=== PATIENT | female | born 1980 | race Caucasian/White ===

== ENCOUNTER 2017-10-04 20:59 | Emergency (ER) | payer MEDICAID, OTHER ==
[~2017-10-04] VITALS: Ht 167.6 cm; Wt 90.3 kg
[~2017-10-04 20:59] MED LIST: ACET-704 PO; CYCL-331 PO; HYDR-2758 PO; IBUP800T19 PO
[2017-10-04] MEDS ORDERED: KETOROLAC 60 MG/2 ML VIAL. IM ONE (21:30)
[2017-10-04] MEDS ORDERED: DEXAMETHASONE SOD PHOS 10 MG/ML VIAL IV ONE (21:30)
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
[2017-10-04] MEDS ORDERED: PRED50TA PO (21:36)
[2017-10-04] MEDS ORDERED: IBUP800T19 PO (21:36)
[2017-10-04 22:00] VITALS: BP 113/44
== END 2017-10-04 22:00 | disposition home or self-care (01) ==
LOC: ER 20:59
DX: M54.42 Lumbago with sciatica, left side (principal); F12.10 Cannabis abuse, uncomplicated
CPT/HCPCS: 96372; 96374; 99284; J1100; J1885

== ENCOUNTER 2018-09-17 20:33 | Emergency (ER) | payer OTHER ==
[~2018-09-17] VITALS: Ht 167.6 cm; Wt 94.2 kg
[~2018-09-17 20:33] MED LIST changes: +HYDR-2155 PO; -HYDR-2758 PO; +PRED50TA PO
[2018-09-17] MEDS ORDERED: IV NORMAL SALINE 1,000ML 1,000 ML IV SCH (20:50)
[2018-09-17] MEDS ORDERED: ONDANSETRON PF 4 MG/2 ML VIAL. IV ONE (21:00)
[2018-09-17] MEDS ORDERED: CONTRAST GIVEN MC PRN (21:00)
[2018-09-17] MEDS ORDERED: IOHEXOL 300 MG/ML 75 ML VIAL. IV ONE (21:00)
[2018-09-17] MEDS ORDERED: xanax (21:24)
[2018-09-17] MEDS ORDERED: remeron (21:24)
[2018-09-17] MEDS ORDERED: paxil (21:24)
[2018-09-17 21:26] LABS: BASO % 1 % (0-3); EOS # 0.4 x10^3/uL (0.0-0.7); EOS % 9 % (0-3); HEMATOCRIT 39.3 % (36.0-47.0); HEMOGLOBIN 13.6 g/dL (12.0-15.5); LYMPH # 1.8 x10^3/uL (1.0-4.8); LYMPH % 36 % (24-48); MEAN CORPUSCULAR HEMOGLOBIN 29 pg (25-35); MEAN CORPUSCULAR HGB CONC 35 g/dL (31-37); MEAN CORPUSCULAR VOLUME 84 fL (79-100); MONO # 0.5 x10^3/uL (0.0-1.1); MONO % 10 % (0-9); NEUT # 2.2 x10^3uL (1.8-7.7); NEUT % 45 % (31-73); PLATELET COUNT 290 x10^3/uL (140-400); RED BLOOD COUNT 4.67 x10^6/uL (3.50-5.40); WHITE BLOOD COUNT 4.9 x10^3/uL (4.0-11.0)
[2018-09-17 21:27] LABS: BACTERIA,URINE 0 /HPF (0-FEW); BILIRUBIN,URINE NEG (NEG); CLARITY,URINE CLEAR; COLOR,URINE YELLOW; GLUCOSE,URINE NEG (NEG); NITRITE,URINE NEG (NEG); SQUAMOUS EPITHELIAL CELL,UR OCC /LPF; UROBILINOGEN,URINE 0.2 mg/dL (0.2 mg/dL); WBC,URINE 0 /HPF (0-4)
[2018-09-17 21:29] LABS: BARBITURATES NEG (NEG); BENZODIAZEPINES POS (NEG); CANNABINOIDS NEG (NEG); COCAINE NEG (NEG); METHADONE NEG (NEG); OPIATES POS (NEG); PHENCYCLIDINE NEG (NEG)
[2018-09-17 21:30] LABS: AMPHETAMINE/METHAMPHETAMINE NEG (NEG)
[2018-09-17 21:41] LABS: ALBUMIN 3.6 g/dL (3.4-5.0); ALBUMIN/GLOBULIN RATIO 0.9 (1.0-1.7); CALCIUM 8.6 mg/dL (8.5-10.1); CREATININE 0.7 mg/dL (0.6-1.0); GFR 93.2; POTASSIUM 3.9 mmol/L (3.5-5.1); TOTAL BILIRUBIN 0.2 mg/dL (0.2-1.0); TOTAL PROTEIN 7.7 g/dL (6.4-8.2)
[2018-09-17] MEDS ORDERED: KETOROLAC 30 MG/ML VIAL. IV ONE (21:45)
--- NOTE | 2018-09-17 22:15 | RAD ---
Examination: CT of the abdomen pelvis with IV contrast HISTORY: History of right-sided abdominal pain, nausea, bloody emesis COMPARISON: 08/13/2015 TECHNIQUE: Axial CT images of the abdomen pelvis were performed with IV contrast. Coronal and sagittal reformatted performed Exposure: One or more of the following individualized dose reduction techniques were utilized for this examination: 1. Automated exposure control 2. Adjustment of the mA and/or kV according to patient size 3. Use of iterative reconstruction technique FINDINGS: Minimal bibasilar lung atelectasis. No evidence of free air identified in the abdomen. The visualized liver, spleen, adrenals grossly appears unremarkable. The gallbladder is mildly distended. The stomach is mildly distended. The visualized pancreas grossly appears unremarkable. The small bowel is nondilated. Feces and gas noted in the colon. The urinary bladder is mildly distended. Punctate bilateral intrarenal collecting system calculi with the largest measuring 3 mm on the left. Mild prominent bilateral extrarenal pelvis. There is a 4.2 x 3.3 cm right ovarian teratoma identified containing fat and calcification within. No evidence of lytic bony destructive lesion. IMPRESSION: 1. Bilateral nephrolithiasis. 2. Right ovarian teratoma again identified. Electronically signed by: Salo Yao MD (09/17/2018 10:12 PM) [facility]
[2018-09-17 22:26] LABS: U PREG PATIENT NEGATIVE (NEG)
[2018-09-17] MEDS ORDERED: ONDA4TAB7 PO (22:48)
[2018-09-17] MEDS ORDERED: TRAM50TA PO (22:48)
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
[2018-09-17 23:00] VITALS: BP 121/80
== END 2018-09-17 23:10 | disposition home or self-care (01) ==
LOC: ER 20:33
DX: R10.10 Upper abdominal pain, unspecified (principal); R10.84 Generalized abdominal pain; R11.2 Nausea with vomiting, unspecified; N20.0 Calculus of kidney; D27.0 Benign neoplasm of right ovary; Z90.89 Acquired absence of other organs
CPT/HCPCS: 36415; 74177; 80053; 80307; 81001; 81025; 83690; 85025; 96361; 96374; 96375; 99284; J1885; J2405; J3010; Q9967; J7030

== ENCOUNTER 2018-09-18 23:37 | Emergency (ER) | payer OTHER ==
[~2018-09-18] VITALS: Ht 167.6 cm; Wt 94.7 kg
[~2018-09-18 23:37] MED LIST changes: +ONDA4TAB7 PO; +TRAM50TA PO; +paxil; +remeron; +xanax
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
[2018-09-19] MEDS ORDERED: IV NORMAL SALINE 1,000ML 1,000 ML IV SCH
[2018-09-19] MEDS ORDERED: ONDANSETRON PF 4 MG/2 ML VIAL. IV ONE (00:15)
[2018-09-19 00:51] LABS: BASO % 1 % (0-3); EOS # 0.4 x10^3/uL (0.0-0.7); EOS % 9 % (0-3); HEMATOCRIT 38.1 % (36.0-47.0); HEMOGLOBIN 12.7 g/dL (12.0-15.5); LYMPH % 42 % (24-48); MEAN CORPUSCULAR HEMOGLOBIN 28 pg (25-35); MEAN CORPUSCULAR HGB CONC 34 g/dL (31-37); MEAN CORPUSCULAR VOLUME 84 fL (79-100); MONO # 0.5 x10^3/uL (0.0-1.1); MONO % 10 % (0-9); NEUT # 1.9 x10^3uL (1.8-7.7); NEUT % 39 % (31-73); PLATELET COUNT 289 x10^3/uL (140-400); RED BLOOD COUNT 4.54 x10^6/uL (3.50-5.40); RED CELL DISTRIBUTION WIDTH 16.9 % (11.5-14.5); WHITE BLOOD COUNT 4.8 x10^3/uL (4.0-11.0)
[2018-09-19 00:58] LABS: ALBUMIN 3.4 g/dL (3.4-5.0); ALBUMIN/GLOBULIN RATIO 0.9 (1.0-1.7); CALCIUM 8.9 mg/dL (8.5-10.1); CREATININE 0.7 mg/dL (0.6-1.0); GFR 93.2; TOTAL BILIRUBIN 0.2 mg/dL (0.2-1.0); TOTAL PROTEIN 7.2 g/dL (6.4-8.2)
[2018-09-19] MEDS ORDERED: DICY20TA3 PO (01:03)
[2018-09-19] MEDS ORDERED: KETOROLAC 30 MG/ML VIAL. ONE (01:18)
[2018-09-19 01:21] VITALS: BP 129/97
[2018-09-19] MEDS ORDERED: KETOROLAC 30 MG/ML VIAL. IV ONE (01:30)
== END 2018-09-19 01:24 | disposition home or self-care (01) ==
LOC: ER 23:37
DX: R10.10 Upper abdominal pain, unspecified (principal); R11.2 Nausea with vomiting, unspecified; F32.9 Major depressive disorder, single episode, unspecified; Z87.442 Personal history of urinary calculi; Z90.89 Acquired absence of other organs; Z98.51 Tubal ligation status
CPT/HCPCS: 36415; 80053; 85025; 96361; 96374; 96375; 99283; J1885; J2405; J3010; J7030

== ENCOUNTER 2018-11-17 01:43 | Emergency (ER) | payer OTHER ==
[~2018-11-17] VITALS: Ht 167.6 cm; Wt 94.7 kg
[~2018-11-17 01:43] MED LIST changes: +DICY20TA3 PO
--- NOTE | 2018-11-17 02:10 | PHYS DOC ---
Past History Past Medical History: Anxiety, Depression, Kidney Stones, Pancreatitis Past Surgical History: Appendectomy, Tubal ligation, Other Alcohol Use: None Drug Use: None Adult General Chief Complaint Chief Complaint: ABDOMINAL PAIN [facility] HPI Patient is a 38-year-old female who presents with complaint of continued upper abdominal pain that is chronic in nature. Patient had undergone a cholecystectomy little over a month ago but continues to have pain in the area despite surgery. Patient states that she feels like the pain is the same as prior to the surgery. She states that she was prescribed hydrocodone for the pain but states that that has not been managing her pain. She also indicates that she had undergone upper endoscopy with no acute findings. She rates pain as severe and states that nothing is improving the pain.[] Review of Systems Review of Systems Constitutional: Denies fever or chills [] Respiratory: Denies cough or shortness of breath [] Cardiovascular: No additional information not addressed in HPI [] GI: Complains of upper abdominal pain without vomiting or diarrhea [] Integument: Denies rash or skin lesions [] Neurologic: Denies headache, focal weakness or sensory changes [] All other systems were reviewed and found to be within normal limits, except as documented in this note. Allergies Allergies Allergies Coded Allergies Type Severity Reaction Last Updated Verified No Known Drug Allergies 09/17/18 No Physical Exam Physical Exam Constitutional: Well developed, well nourished, no acute distress, non-toxic appearance. [] HENT: Normocephalic, atraumatic, bilateral external ears normal, oropharynx moist, no oral exudates, nose normal. [] Eyes: PERRLA, EOMI, conjunctiva normal, no discharge. [] Neck: Normal range of motion, no tenderness, supple, no stridor. [] Cardiovascular: Regular rate and rhythm[] Lungs & Thorax: Bilateral breath sounds clear to auscultation [] Abdomen: Bowel sounds normal, soft, with upper abdominal tenderness. [] Skin: Warm, dry, no erythema, no rash. [] Extremities: No tenderness, no cyanosis, no clubbing, ROM intact. [] Neurologic: Alert and oriented X 3, no focal deficits noted. [] EKG EKG [] Radiology/Procedures Radiology/Procedures [] Impressions: PROCEDURE: CT ABD PELV W/ IV CONTRST ONLY INDICATION: Abdomen pain COMPARISON: September 2018 TECHNIQUE: Axial CT images obtained through the abdomen and pelvis with contrast. One or more of the following individualized dose reduction techniques were utilized for this examination: 1. Automated exposure control; 2. Adjustment of the mA and/or kV according to patient size; 3. Use of iterative reconstruction technique. FINDINGS: Abdominal aorta is not aneurysmal. Small fat-containing right inguinal hernia. Postcholecystectomy changes without intrahepatic bile duct dilation. No peripancreatic fluid collection. Spleen is unremarkable. Bilateral nonobstructive renal stones. Urinary bladder is partially distended. Mild distention of the right extrarenal pelvis. Repeat demonstration of mixed attenuation mass in the right adnexa with fat soft tissue and fluid density component. Measures up to about 80 x 46 mm. Suture line is seen at the cecum which could be from post appendectomy changes. No dilated loops of bowel to suggest obstruction. Within the proximal jejunum there is a region with mild prominence of the wall. Degenerative changes of the spine. IMPRESSION: 1. Bilateral nonobstructive renal stones with distention of right extrarenal pelvis again seen. 2. Repeat demonstration of mixed attenuation mass in the right adnexa likely secondary to a teratoma. 3. There is a couple loops of jejunum with a mildly prominent wall with mild distention of the jejunum up to approximately 38 mm. This could be secondary to phase of peristalsis given that there is not a high-grade transition point seen however causes such as enteritis not excluded. Electronically signed by: Judith Velarde MD (11/17/2018 4:08 AM) [facility] DICTATED AND SIGNED BY: JUDITH VELARDE MD DATE: 11/17/18 0408 Course & Med Decision Making Course & Med Decision Making Pertinent Labs and Imaging studies reviewed. (See chart for details) [] Dragon Disclaimer Dragon Disclaimer This electronic medical record was generated, in whole or in part, using a voice recognition dictation system. Departure Departure: Impression: Primary Impression: Chronic abdominal pain Disposition: 01 HOME, SELF-CARE Condition: STABLE Referrals: CHIKA AYERS (PCP) Patient Instructions: Abdominal Pain, Chronic Pain, Chronic Pain Management DANIELE SLOAN Jr. DO Nov 17, 2018 02:10
[2018-11-17] MEDS ORDERED: IV NORMAL SALINE 1,000ML 1,000 ML IV SCH (02:15)
[2018-11-17] MEDS ORDERED: ONDANSETRON PF 4 MG/2 ML VIAL. IV ONE (02:15)
[2018-11-17 02:43] LABS: BASO % 1 % (0-3); EOS # 0.4 x10^3/uL (0.0-0.7); EOS % 7 % (0-3); HEMATOCRIT 36.4 % (36.0-47.0); HEMOGLOBIN 12.2 g/dL (12.0-15.5); LYMPH # 1.9 x10^3/uL (1.0-4.8); LYMPH % 35 % (24-48); MEAN CORPUSCULAR HEMOGLOBIN 28 pg (25-35); MEAN CORPUSCULAR HGB CONC 34 g/dL (31-37); MEAN CORPUSCULAR VOLUME 85 fL (79-100); MONO # 0.5 x10^3/uL (0.0-1.1); MONO % 9 % (0-9); NEUT # 2.6 x10^3uL (1.8-7.7); NEUT % 48 % (31-73); PLATELET COUNT 337 x10^3/uL (140-400); WHITE BLOOD COUNT 5.4 x10^3/uL (4.0-11.0)
[2018-11-17 02:59] LABS: ALBUMIN 3.4 g/dL (3.4-5.0); ALBUMIN/GLOBULIN RATIO 0.9 (1.0-1.7); CREATININE 0.5 mg/dL (0.6-1.0); GFR 137.4; TOTAL BILIRUBIN 0.2 mg/dL (0.2-1.0); TOTAL PROTEIN 7.4 g/dL (6.4-8.2)
[2018-11-17 03:04] LABS: BILIRUBIN,URINE NEG (NEG); CLARITY,URINE CLEAR; COLOR,URINE YELLOW; GLUCOSE,URINE NEG (NEG); NITRITE,URINE NEG (NEG); UROBILINOGEN,URINE 0.2 mg/dL (0.2 mg/dL)
[2018-11-17 03:05] LABS: BACTERIA,URINE FEW /HPF (0-FEW); RBC,URINE 0 /HPF (0-2); SQUAMOUS EPITHELIAL CELL,UR MANY /LPF; WBC,URINE OCC /HPF (0-4)
[2018-11-17 03:08] LABS: U PREG PATIENT NEGATIVE (NEG)
[2018-11-17 03:30] VITALS: BP 116/77
[2018-11-17] MEDS ORDERED: CONTRAST GIVEN MC PRN (03:30)
[2018-11-17] MEDS ORDERED: IOHEXOL 300 MG/ML 75 ML VIAL. IV ONE (03:30)
--- NOTE | 2018-11-17 04:11 | RAD ---
INDICATION: Abdomen pain COMPARISON: September 2018 TECHNIQUE: Axial CT images obtained through the abdomen and pelvis with contrast. One or more of the following individualized dose reduction techniques were utilized for this examination: 1. Automated exposure control; 2. Adjustment of the mA and/or kV according to patient size; 3. Use of iterative reconstruction technique. FINDINGS: Abdominal aorta is not aneurysmal. Small fat-containing right inguinal hernia. Postcholecystectomy changes without intrahepatic bile duct dilation. No peripancreatic fluid collection. Spleen is unremarkable. Bilateral nonobstructive renal stones. Urinary bladder is partially distended. Mild distention of the right extrarenal pelvis. Repeat demonstration of mixed attenuation mass in the right adnexa with fat soft tissue and fluid density component. Measures up to about 80 x 46 mm. Suture line is seen at the cecum which could be from post appendectomy changes. No dilated loops of bowel to suggest obstruction. Within the proximal jejunum there is a region with mild prominence of the wall. Degenerative changes of the spine. IMPRESSION: 1. Bilateral nonobstructive renal stones with distention of right extrarenal pelvis again seen. 2. Repeat demonstration of mixed attenuation mass in the right adnexa likely secondary to a teratoma. 3. There is a couple loops of jejunum with a mildly prominent wall with mild distention of the jejunum up to approximately 38 mm. This could be secondary to phase of peristalsis given that there is not a high-grade transition point seen however causes such as enteritis not excluded. Electronically signed by: Gregorio Velarde MD (11/17/2018 4:08 AM) [facility]
== END 2018-11-17 04:26 | disposition home or self-care (01) ==
LOC: ER 01:43
DX: G89.29 Other chronic pain (principal); R10.10 Upper abdominal pain, unspecified; N20.0 Calculus of kidney; K40.90 Unilateral inguinal hernia, without obstruction or gangrene, not specified as recurrent; F41.9 Anxiety disorder, unspecified; F32.9 Major depressive disorder, single episode, unspecified; Z87.442 Personal history of urinary calculi; Z90.89 Acquired absence of other organs; Z90.49 Acquired absence of other specified parts of digestive tract; Z98.51 Tubal ligation status
CPT/HCPCS: 36415; 74177; 80053; 81001; 81025; 83690; 85025; 87086; 96374; 96375; 96376; 99285; J2405; J3010; Q9967; J7030

== ENCOUNTER 2018-11-19 20:14 | Emergency (ER) | payer OTHER ==
[~2018-11-19] VITALS: Ht 167.6 cm; Wt 94.7 kg
--- NOTE | 2018-11-19 20:18 | ED.ADGEN ---
Past History Past Medical History: Anxiety, Constipation, Depression, GERD, Kidney Stones, Ovarian Cyst, Pancreatitis Past Surgical History: Appendectomy, Tubal ligation, Other Alcohol Use: None Drug Use: None Adult General Chief Complaint Chief Complaint "... I ve been having abdomen pain for months now.. lst I fell on glass window.. and some went into my stomach... they did surgery at [facility]... that was about 5 months ago.. then I had my gall bladder out about a month ago at [facility]...but I still get abd. pain... I have an apt. at my primary Dr. Cunningham.... tomorrow.. but they said go the Emergency.. if I was sill hurting... ".." I was seen here ... " HPI HPI Patient is a 38 year old female who presents with above hx and complaints of generalized abd. pain, nausea, vomiting . Patient denies bad food intake patient, denies any recent travel or specific ill contacts. Has had 2 surgeries in the last 5 months. One fro trauma hx perforation with glass fragments of a door at [facility]. Had another surgery for gallbladder removal 1 month ago. at [facility].. Denies any intake of bad food. Patient has been passing gas and stool. Patient denies any specific ill contacts or recent travel. Patient denies history of colitis or irritable bowel syndrome. Denies family history of colitis or irritable bowel. Patient denies any recent trauma to her abdomen. Patient has had previous previous other abd. surgeries of appendectomy and tubal ligation. Pt. has a teratoma or Rt ovarian mass, currently has follow up with [facility]on 11/22. Patient has history of anxiety, depression, kidney stones,GERD and pancreatitis. Patient denies history of endometriosis.. Patient denies dark or tarry stools. Pt. has had Nothing seems to make the pain better or worse. Patient normally follows with Dr. Ayers in [facility] primary care.CT on showed no acute surgical issues. Reviewed ER record at Dr. Fischer on 11/17/2018 in ED record on08/12/2018 for pancreatitis. Review of Systems Review of Systems Constitutional: Denies fever or chills [] Eyes: Denies change in visual acuity, redness, or eye pain [] HENT: Denies nasal congestion or sore throat [] Respiratory: Denies cough or shortness of breath [] Cardiovascular: No additional information not addressed in HPI [] GI: Has complaints of generalized abdominal pain, nausea, vomiting. Denies bloody stools or diarrhea [] : Denies dysuria or hematuria [] Musculoskeletal: Denies back pain or joint pain [] Integument: Denies rash or skin lesions [] Neurologic: Denies headache, focal weakness or sensory changes [] Endocrine: Denies polyuria or polydipsia [] All other systems were reviewed and found to be within normal limits, except as documented in this note. Family History Family History Noncontributory Current Medications Current Medications Current Medications Medications (Trade) Dose Ordered Sig/Carlton Start Time Stop Time Status Last Admin Dose Admin Famotidine (Pepcid Vial) 20 mg 1X ONCE 11/19/18 20:45 11/19/18 20:47 DC 11/19/18 20:59 20 MG Info (Do NOT chart on this entry -- for MONITORING) 1 each PRN DAILY PRN 11/19/18 22:30 11/20/18 02:18 DC Iohexol (Omnipaque 240 Mg/ml) 30 ml 1X ONCE 11/19/18 22:30 11/19/18 22:31 DC 11/19/18 23:14 30 ML Iohexol (Omnipaque 300 Mg/ml) 75 ml 1X ONCE 11/19/18 22:30 11/19/18 22:31 DC 11/19/18 23:15 75 ML Ketorolac Tromethamine (Toradol 30mg Vial) 30 mg 1X ONCE 11/19/18 20:45 11/19/18 20:47 DC 11/19/18 21:00 30 MG Lactated Ringer's 1,000 ml @ 1,000 mls/hr Q1H 11/19/18 20:41 11/19/18 21:40 DC 11/19/18 20:59 1,000 MLS/HR Magnesium Hydroxide (Milk Of Magnesia) 2,400 mg 1X ONCE 11/19/18 20:45 11/19/18 20:47 DC Morphine Sulfate (Morphine 10mg Syringe) 10 mg 1X ONCE 11/20/18 01:15 11/20/18 01:16 DC 11/20/18 01:14 10 MG Ondansetron HCl (Zofran) 8 mg 1X ONCE 11/19/18 23:00 11/19/18 23:01 DC 11/19/18 23:11 8 MG Allergies Allergies Allergies Coded Allergies Type Severity Reaction Last Updated Verified No Known Drug Allergies 11/19/18 No Physical Exam Physical Exam Constitutional: Moderately acute distress, non-toxic appearance. [] HENT: Normocephalic, atraumatic, bilateral external ears normal, oropharynx moist, no oral exudates, nose normal. [] Eyes: PERRLA, EOMI, conjunctiva normal, no discharge. [] Neck: Normal range of motion, no tenderness, supple, no stridor. [] Cardiovascular:Heart rate regular rhythm, no murmur [] Lungs & Thorax: Bilateral breath sounds clear to auscultation [] Abdomen: Bowel sounds normal, soft, generalized tenderness, mild distended, no masses, no pulsatile masses. [] Surgery scars in both cholecystectomy and midline above the umbilicus. Skin: Warm, dry, no erythema, no rash. [] Back: No tenderness, no CVA tenderness. [] Extremities: No tenderness, no cyanosis, no clubbing, ROM intact, no edema. [] No true psoas sign Neurologic: Alert and oriented X 3, normal motor function, normal sensory function, no focal deficits noted. [] Psychologic: Affect normal, judgement normal, mood normal. [] Current Patient Data Vital Signs Vital Signs Date Time Temp Pulse Resp B/P (MAP) Pulse Ox O2 Delivery O2 Flow Rate FiO2 11/19/18 23:15 91 20 136/90 (105) 96 Room Air 11/19/18 20:23 97.7 Lab Results Laboratory Tests Test 11/19/18 20:23 11/19/18 20:36 11/19/18 21:15 Urine Collection Type Unknown Urine Color Straw Urine Clarity Clear Urine pH 7.0 Urine Specific Omer <=1.005 Urine Protein Neg (NEG-TRACE) Urine Glucose (UA) Neg mg/dL (NEG) Urine Ketones (Stick) Neg mg/dL (NEG) Urine Blood Mod (NEG) Urine Nitrite Neg (NEG) Urine Bilirubin Neg (NEG) Urine Urobilinogen Dipstick 0.2 mg/dL (0.2 mg/dL) Urine Leukocyte Esterase Neg (NEG) Urine RBC 1-2 /HPF (0-2) Urine WBC Occ /HPF (0-4) Urine Squamous Epithelial Cells Occ /LPF Urine Bacteria 0 /HPF (0-FEW) Urine Opiates Screen Neg (NEG) Urine Methadone Screen Neg (NEG) Urine Barbiturates Neg (NEG) Urine Phencyclidine Screen Neg (NEG) Urine Amphetamine/Methamphetamine Neg (NEG) Urine Benzodiazepines Screen Pos (NEG) Urine Cocaine Screen Neg (NEG) Urine Cannabinoids Screen Neg (NEG) Urine Ethyl Alcohol Neg (NEG) POC Urine HCG, Qualitative hcg negative (Negative) White Blood Count 5.4 x10^3/uL (4.0-11.0) Red Blood Count 4.67 x10^6/uL (3.50-5.40) Hemoglobin 13.3 g/dL (12.0-15.5) Hematocrit 39.1 % (36.0-47.0) Mean Corpuscular Volume 84 fL (79-100) Mean Corpuscular Hemoglobin 29 pg (25-35) Mean Corpuscular Hemoglobin Concent 34 g/dL (31-37) Red Cell Distribution Width 17.6 % (11.5-14.5) H Platelet Count 336 x10^3/uL (140-400) Neutrophils (%) (Auto) 59 % (31-73) Lymphocytes (%) (Auto) 30 % (24-48) Monocytes (%) (Auto) 8 % (0-9) Eosinophils (%) (Auto) 2 % (0-3) Basophils (%) (Auto) 1 % (0-3) Neutrophils # (Auto) 3.2 x10^3uL (1.8-7.7) Lymphocytes # (Auto) 1.6 x10^3/uL (1.0-4.8) Monocytes # (Auto) 0.5 x10^3/uL (0.0-1.1) Eosinophils # (Auto) 0.1 x10^3/uL (0.0-0.7) Basophils # (Auto) 0.0 x10^3/uL (0.0-0.2) Prothrombin Time < 9.3 SEC (9.4-11.4) L Prothrombin Time INR 0.9 (0.9-1.1) PTT 24 SEC (23-33) Sodium Level 138 mmol/L (136-145) Potassium Level 3.8 mmol/L (3.5-5.1) Chloride Level 102 mmol/L (98-107) Carbon Dioxide Level 29 mmol/L (21-32) Anion Gap 7 (6-14) Blood Urea Nitrogen 14 mg/dL (7-20) Creatinine 0.6 mg/dL (0.6-1.0) Estimated GFR (Cockcroft-Gault) 111.3 Glucose Level 89 mg/dL (70-99) Calcium Level 9.6 mg/dL (8.5-10.1) Total Bilirubin 0.2 mg/dL (0.2-1.0) Direct Bilirubin 0.1 mg/dL (0.0-0.2) Aspartate Amino Transferase (AST) 38 U/L (15-37) H Alanine Aminotransferase (ALT) 163 U/L (14-59) H Alkaline Phosphatase 200 U/L (46-116) H Creatine Kinase 43 U/L (26-192) Troponin I Quantitative < 0.017 ng/mL (0-0.055) Total Protein 8.4 g/dL (6.4-8.2) H Albumin 3.8 g/dL (3.4-5.0) Amylase Level 48 U/L (25-115) Lipase 73 U/L (73-393) EKG EKG [] Radiology/Procedures Radiology/Procedures My interpretation of acute abdomen film shows no acute cardiopulmonary findings. No free air in the diaphragm. Does have clips from her previous gallbladder surgery. This does have stool and gas in colon. Nonspecific bowel gas pattern. No findings of obvious obstruction. Reviewed CT results of 11/17/2018, ED visit for abdomen pain. CT at that time showed no acute surgical findings. There were a couple loops of jejunum prominent with mild distention. Possible transition point versus enteritis. Did have bilateral nonobstructive renal stones[] [address] [address] IMAGING REPORT Signed PATIENT: KAREN BENNETT ACCOUNT: [id number] : 1980 LOCATION: ER AGE: 38 SEX: F EXAM STATUS: REG ER ORD. PHYSICIAN: JEAN-PIERRE YOUNG MD REASON: Omni 300 75cc: Abd pain, N/V. Hx:Samina, appy, lithotripsy PROCEDURE: CT ABD PELV W/ORAL&IV CONTRAST CT abdomen and pelvis with contrast: Reason for examination: Abdominal pain with nausea and vomiting. History of cholecystectomy and appendectomy. Comparison is made to previous study dated 11/17/2018. Helical images were obtained through the abdomen pelvis with intravenous administration of 75 cc Omnipaque 300. Oral contrast was also administered. Reconstruction was performed in sagittal and coronal planes. Exposure: One or more of the following individualized dose reduction techniques were utilized for this examination: 1. Automated exposure control 2. Adjustment of the mA and/or kV according to patient size 3. Use of iterative reconstruction technique. The lung bases are clear. The heart size is normal with no pericardial effusion. No abnormality seen at the liver, spleen, adrenal glands or pancreas. The abdominal aorta and inferior vena cava show no abnormalities. The kidneys show small nonobstructing calculi bilaterally. There is no hydronephrosis or obstructive uropathy evident. The appendix is surgically absent. There is no evidence of diverticulosis or diverticulitis. The small intestinal tract shows no abnormal dilatation or obstruction but there does appear to be some wall thickening in the proximal jejunum which may reflect enteritis. No abnormality seen stomach. No abnormality seen at the bladder, uterus or left ovary. In the right adnexa, there appears be complex mass containing fat and calcification. Teratoma cannot be excluded. This appears to measure approximately 7.4 x 4.4 x 5.7 cm in AP, transverse and craniocaudal dimensions respectively. No acute bony abnormalities are seen. IMPRESSION: Wall thickening in the proximal jejunum without dilatation. This could reflect enteritis. Continued presence of a 7.4 x 4.4 x 5.7 cm complex mass containing fat and calcification. Appearance would be consistent with a teratoma. Electronically signed by: Maribel Garcia MD (11/20/2018 12:28 AM) [facility] DICTATED AND SIGNED BY: MARIBEL GARCIA MD DATE: 11/20/18 0028 CC: JEAN-PIERRE YOUNG MD; CHIKA AYERS ~ Course & Med Decision Making Course & Med Decision Making Pertinent Labs and Imaging studies reviewed. (See chart for details) Pt. to remain on clear fluid diet only. NO SOLIDS OR MILK PRODUCTS. Must allow bowel rest. Clear fluid s as long as she has abd. pain. Keep scheduled follow up with OB /criminal investigative agent 11/22 Follow up with primary. Keep CT disc to show to primary, ob and surgery follow up. Return if any concerns. Continue the Pepcid and Zofran as needed for nausea and vomiting. Follow up pending labs. [] Final Impression Final Impression 1. Abdomen Pain[] 2. Elevated AST, ALT, Alk Phos 38/163/200 3. Enteritis- Proximal Jejunum - No dilation 4. Rt. Complex Ovarian Mass- Teratoma 7.4x 4.4 x 5.7 5. Hx. GERD- take Pepcid Dragon Disclaimer Dragon Disclaimer This electronic medical record was generated, in whole or in part, using a voice recognition dictation system. Discharge Summary Visit Information Final Diagnosis Problems Medical Problems: (1) Enteritis Status: Acute (2) Pain in the abdomen Status: Acute (3) Teratoma of right ovary Status: Acute Brief Hospital Course Allergies Allergies Coded Allergies Type Severity Reaction Last Updated Verified No Known Drug Allergies 11/19/18 No Vital Signs Vital Signs Date Time Temp Pulse Resp B/P (MAP) Pulse Ox O2 Delivery O2 Flow Rate FiO2 11/19/18 23:15 91 20 136/90 (105) 96 Room Air 11/19/18 20:23 97.7 Lab Results Laboratory Tests Test 11/19/18 20:23 11/19/18 20:36 11/19/18 21:15 Urine Collection Type Unknown Urine Color Straw Urine Clarity Clear Urine pH 7.0 Urine Specific Omer <=1.005 Urine Protein Neg (NEG-TRACE) Urine Glucose (UA) Neg mg/dL (NEG) Urine Ketones (Stick) Neg mg/dL (NEG) Urine Blood Mod (NEG) Urine Nitrite Neg (NEG) Urine Bilirubin Neg (NEG) Urine Urobilinogen Dipstick 0.2 mg/dL (0.2 mg/dL) Urine Leukocyte Esterase Neg (NEG) Urine RBC 1-2 /HPF (0-2) Urine WBC Occ /HPF (0-4) Urine Squamous Epithelial Cells Occ /LPF Urine Bacteria 0 /HPF (0-FEW) Urine Opiates Screen Neg (NEG) Urine Methadone Screen Neg (NEG) Urine Barbiturates Neg (NEG) Urine Phencyclidine Screen Neg (NEG) Urine Amphetamine/Methamphetamine Neg (NEG) Urine Benzodiazepines Screen Pos (NEG) Urine Cocaine Screen Neg (NEG) Urine Cannabinoids Screen Neg (NEG) Urine Ethyl Alcohol Neg (NEG) Bedside Urine HCG, Qualitative hcg negative (Negative) White Blood Count 5.4 x10^3/uL (4.0-11.0) Red Blood Count 4.67 x10^6/uL (3.50-5.40) Hemoglobin 13.3 g/dL (12.0-15.5) Hematocrit 39.1 % (36.0-47.0) Mean Corpuscular Volume 84 fL (79-100) Mean Corpuscular Hemoglobin 29 pg (25-35) Mean Corpuscular Hemoglobin Concent 34 g/dL (31-37) Red Cell Distribution Width 17.6 % (11.5-14.5) Platelet Count 336 x10^3/uL (140-400) Neutrophils (%) (Auto) 59 % (31-73) Lymphocytes (%) (Auto) 30 % (24-48) Monocytes (%) (Auto) 8 % (0-9) Eosinophils (%) (Auto) 2 % (0-3) Basophils (%) (Auto) 1 % (0-3) Neutrophils # (Auto) 3.2 x10^3uL (1.8-7.7) Lymphocytes # (Auto) 1.6 x10^3/uL (1.0-4.8) Monocytes # (Auto) 0.5 x10^3/uL (0.0-1.1) Eosinophils # (Auto) 0.1 x10^3/uL (0.0-0.7) Basophils # (Auto) 0.0 x10^3/uL (0.0-0.2) Prothrombin Time < 9.3 SEC (9.4-11.4) Prothromb Time International Ratio 0.9 (0.9-1.1) Activated Partial Thromboplast Time 24 SEC (23-33) Sodium Level 138 mmol/L (136-145) Potassium Level 3.8 mmol/L (3.5-5.1) Chloride Level 102 mmol/L (98-107) Carbon Dioxide Level 29 mmol/L (21-32) Anion Gap 7 (6-14) Blood Urea Nitrogen 14 mg/dL (7-20) Creatinine 0.6 mg/dL (0.6-1.0) Estimated GFR (Cockcroft-Gault) 111.3 Glucose Level 89 mg/dL (70-99) Calcium Level 9.6 mg/dL (8.5-10.1) Total Bilirubin 0.2 mg/dL (0.2-1.0) Direct Bilirubin 0.1 mg/dL (0.0-0.2) Aspartate Amino Transf (AST/SGOT) 38 U/L (15-37) Alanine Aminotransferase (ALT/SGPT) 163 U/L (14-59) Alkaline Phosphatase 200 U/L (46-116) Creatine Kinase 43 U/L (26-192) Troponin I Quantitative < 0.017 ng/mL (0-0.055) Total Protein 8.4 g/dL (6.4-8.2) Albumin 3.8 g/dL (3.4-5.0) Amylase Level 48 U/L (25-115) Lipase 73 U/L (73-393) Brief Hospital Course Ms. Bennett is a 38 old female who presented with generalized abd. pain. Possible Enteritis, and Rt. Ovarian mass Discharge Information Condition at Discharge: Improved, Stable Disposition/Orders: D/C to Home Dischare Medications Current Medications Magnesium Hydroxide (Milk Of Magnesia) 2,400 mg 1X ONCE PO Last administered on 11/19/18at 20:40; Admin Dose 2,400 MG; Start 11/19/18 at 20:30; Stop 11/19/18 at 20:31; Status DC Lactated Ringer's 1,000 ml @ 1,000 mls/hr Q1H IV Last administered on 11/19/18at 20:59; Admin Dose 1,000 MLS/HR; Start 11/19/18 at 20:41; Stop 11/19/18 at 21:40; Status DC Ondansetron HCl (Zofran) 8 mg 1X ONCE IV Last administered on 11/19/18at 20:59; Admin Dose 8 MG; Start 11/19/18 at 20:45; Stop 11/19/18 at 20:47; Status DC Famotidine (Pepcid Vial) 20 mg 1X ONCE IVP Last administered on 11/19/18at 20:59; Admin Dose 20 MG; Start 11/19/18 at 20:45; Stop 11/19/18 at 20:47; Status DC Ketorolac Tromethamine (Toradol 30mg Vial) 30 mg 1X ONCE IV Last administered on 11/19/18at 21:00; Admin Dose 30 MG; Start 11/19/18 at 20:45; Stop 11/19/18 at 20:47; Status DC Magnesium Hydroxide (Milk Of Magnesia) 2,400 mg 1X ONCE PO ; Start 11/19/18 at 20:45; Stop 11/19/18 at 20:47; Status DC Morphine Sulfate (Morphine 10mg Syringe) 10 mg 1X ONCE SQ Last administered on 11/19/18at 22:07; Admin Dose 10 MG; Start 11/19/18 at 22:00; Stop 11/19/18 at 22:01; Status DC Iohexol (Omnipaque 240 Mg/ml) 30 ml 1X ONCE PO Last administered on 11/19/18at 23:14; Admin Dose 30 ML; Start 11/19/18 at 22:30; Stop 11/19/18 at 22:31; Status DC Iohexol (Omnipaque 300 Mg/ml) 75 ml 1X ONCE IV Last administered on 11/19/18at 23:15; Admin Dose 75 ML; Start 11/19/18 at 22:30; Stop 11/19/18 at 22:31; Status DC Info (Do NOT chart on this entry -- for MONITORING) 1 each PRN DAILY PRN MC SEE COMMENTS; Start 11/19/18 at 22:30; Stop 11/20/18 at 02:18; Status DC Ondansetron HCl (Zofran) 8 mg 1X ONCE IV Last administered on 11/19/18at 23:11; Admin Dose 8 MG; Start 11/19/18 at 23:00; Stop 11/19/18 at 23:01; Status DC Morphine Sulfate (Morphine 10mg Syringe) 10 mg 1X ONCE SQ Last administered on 11/19/18at 23:11; Admin Dose 10 MG; Start 11/19/18 at 23:30; Stop 11/19/18 at 23:31; Status DC Morphine Sulfate (Morphine 10mg Syringe) 10 mg 1X ONCE SQ Last administered on 11/20/18at 01:14; Admin Dose 10 MG; Start 11/20/18 at 01:15; Stop 11/20/18 at 01:16; Status DC Active Scripts Active Pepcid (Famotidine) 20 Mg Tablet 20 Mg PO BID Zofran (Ondansetron Hcl) 8 Mg Tablet 8 Mg PO QIDPRN PRN Hydrocodone-Ibuprofen 7.5-200 (Hydrocodone/Ibuprofen) 1 Each Tablet 1 Tab PO PRN Q6HRS PRN Dicyclomine Hcl 20 Mg Tablet 1 Tab PO TID PRN Zofran (Ondansetron Hcl) 4 Mg Tablet 4 Mg PO Q6HRS PRN Tramadol Hcl (Tramadol HCl) 50 Mg Tablet 50 Mg PO PRN Q6HRS PRN Reported [remeron] [xanax] [paxil] Dragon Disclaimer This chart was dictated in whole or in part using Voice Recognition software in a busy, high-work load, and often noisy Emergency Department environment. It may contain unintended and wholly unrecognized errors or omissions. JEAN-PIERRE YOUNG MD Nov 19, 2018 20:18
[2018-11-19] MEDS ORDERED: MAGNESIUM HYDROXIDE 2,400 MG/30 ML ORAL.SUSP. PO ONE ×2 (20:30→20:45)
[2018-11-19] MEDS ORDERED: IV RINGERS SOLUTION,LACTATED 1,000 ML IV SCH (20:41)
[2018-11-19] MEDS ORDERED: KETOROLAC 30 MG/ML VIAL. IV ONE (20:45)
[2018-11-19] MEDS ORDERED: FAMOTIDINE 20 MG/2 ML VIAL IVP ONE (20:45)
[2018-11-19] MEDS ORDERED: ONDANSETRON PF 4 MG/2 ML VIAL. IV ONE ×2 (20:45→23:00)
[2018-11-19 21:10] LABS: BARBITURATES NEG (NEG); BENZODIAZEPINES POS (NEG); CANNABINOIDS NEG (NEG); COCAINE NEG (NEG); METHADONE NEG (NEG); OPIATES NEG (NEG); PHENCYCLIDINE NEG (NEG)
[2018-11-19 21:12] LABS: BACTERIA,URINE 0 /HPF (0-FEW); BILIRUBIN,URINE NEG (NEG); CLARITY,URINE CLEAR; COLOR,URINE STRAW; GLUCOSE,URINE NEG (NEG); NITRITE,URINE NEG (NEG); SQUAMOUS EPITHELIAL CELL,UR OCC /LPF; UROBILINOGEN,URINE 0.2 mg/dL (0.2 mg/dL); WBC,URINE OCC /HPF (0-4)
[2018-11-19 21:20] LABS: AMPHETAMINE/METHAMPHETAMINE NEG (NEG)
--- NOTE | 2018-11-19 21:29 | RAD ---
EXAM: Abdomen acute complete. HISTORY: Pain. COMPARISON: CT dated 11/17/2018. FINDINGS: A frontal view the chest and frontal upright and supine views of the abdomen are obtained. There is no infiltrate, pleural effusion or pneumothorax. The heart is normal in size. There is moderate gas and stool within the colon. No abnormally dilated loop of bowel is seen. There is no free air. There are cholecystectomy clips. IMPRESSION: 1. Nonobstructive bowel gas pattern. 2. No acute pulmonary finding. Electronically signed by: Karin Phan MD (11/19/2018 9:26 PM) [facility]
[2018-11-19 21:31] LABS: BASO % 1 % (0-3); EOS # 0.1 x10^3/uL (0.0-0.7); EOS % 2 % (0-3); HEMATOCRIT 39.1 % (36.0-47.0); HEMOGLOBIN 13.3 g/dL (12.0-15.5); LYMPH # 1.6 x10^3/uL (1.0-4.8); LYMPH % 30 % (24-48); MEAN CORPUSCULAR HEMOGLOBIN 29 pg (25-35); MEAN CORPUSCULAR HGB CONC 34 g/dL (31-37); MEAN CORPUSCULAR VOLUME 84 fL (79-100); MONO # 0.5 x10^3/uL (0.0-1.1); MONO % 8 % (0-9); NEUT # 3.2 x10^3uL (1.8-7.7); NEUT % 59 % (31-73); PLATELET COUNT 336 x10^3/uL (140-400); RED BLOOD COUNT 4.67 x10^6/uL (3.50-5.40); RED CELL DISTRIBUTION WIDTH 17.6 % (11.5-14.5); WHITE BLOOD COUNT 5.4 x10^3/uL (4.0-11.0)
[2018-11-19 21:47] LABS: ALBUMIN 3.8 g/dL (3.4-5.0); CALCIUM 9.6 mg/dL (8.5-10.1); CREATININE 0.6 mg/dL (0.6-1.0); DIRECT BILIRUBIN 0.1 mg/dL (0.0-0.2); GFR 111.3; POTASSIUM 3.8 mmol/L (3.5-5.1); TOTAL BILIRUBIN 0.2 mg/dL (0.2-1.0); TOTAL PROTEIN 8.4 g/dL (6.4-8.2)
[2018-11-19] MEDS ORDERED: MORPHINE SULFATE 10 MG/ML SYRINGE. SQ ONE ×2 (22:00→23:30)
[2018-11-19] MEDS ORDERED: CONTRAST GIVEN MC PRN (22:30)
[2018-11-19] MEDS ORDERED: IOHEXOL 240 MG/ML 50ML VIAL. PO ONE (22:30)
[2018-11-19] MEDS ORDERED: IOHEXOL 300 MG/ML 75 ML VIAL. IV ONE (22:30)
[2018-11-19 23:15] VITALS: BP 136/90
--- NOTE | 2018-11-20 00:31 | RAD ---
CT abdomen and pelvis with contrast: Reason for examination: Abdominal pain with nausea and vomiting. History of cholecystectomy and appendectomy. Comparison is made to previous study dated 11/17/2018. Helical images were obtained through the abdomen pelvis with intravenous administration of 75 cc Omnipaque 300. Oral contrast was also administered. Reconstruction was performed in sagittal and coronal planes. Exposure: One or more of the following individualized dose reduction techniques were utilized for this examination: 1. Automated exposure control 2. Adjustment of the mA and/or kV according to patient size 3. Use of iterative reconstruction technique. The lung bases are clear. The heart size is normal with no pericardial effusion. No abnormality seen at the liver, spleen, adrenal glands or pancreas. The abdominal aorta and inferior vena cava show no abnormalities. The kidneys show small nonobstructing calculi bilaterally. There is no hydronephrosis or obstructive uropathy evident. The appendix is surgically absent. There is no evidence of diverticulosis or diverticulitis. The small intestinal tract shows no abnormal dilatation or obstruction but there does appear to be some wall thickening in the proximal jejunum which may reflect enteritis. No abnormality seen stomach. No abnormality seen at the bladder, uterus or left ovary. In the right adnexa, there appears be complex mass containing fat and calcification. Teratoma cannot be excluded. This appears to measure approximately 7.4 x 4.4 x 5.7 cm in AP, transverse and craniocaudal dimensions respectively. No acute bony abnormalities are seen. IMPRESSION: Wall thickening in the proximal jejunum without dilatation. This could reflect enteritis. Continued presence of a 7.4 x 4.4 x 5.7 cm complex mass containing fat and calcification. Appearance would be consistent with a teratoma. Electronically signed by: Lazara Thakkar MD (11/20/2018 12:28 AM) [facility]
[2018-11-20] MEDS ORDERED: ONDA8TAB9 PO (00:56)
[2018-11-20] MEDS ORDERED: FAMO-63 PO (00:56)
[2018-11-20] MEDS ORDERED: HYDR-1179 PO (00:56)
[2018-11-20] MEDS ORDERED: MORPHINE SULFATE 10 MG/ML SYRINGE. SQ ONE (01:15)
== END 2018-11-20 01:30 | disposition home or self-care (01) ==
LOC: ER 20:14
DX: K52.89 Other specified noninfective gastroenteritis and colitis (principal); D27.0 Benign neoplasm of right ovary; K21.9 Gastro-esophageal reflux disease without esophagitis; R70.0 Elevated erythrocyte sedimentation rate; R74.0 Nonspecific elevation of levels of transaminase and lactic acid dehydrogenase [LDH]; R74.8 Abnormal levels of other serum enzymes; R11.2 Nausea with vomiting, unspecified; F41.9 Anxiety disorder, unspecified; F32.9 Major depressive disorder, single episode, unspecified; Z87.442 Personal history of urinary calculi; Z90.49 Acquired absence of other specified parts of digestive tract; Z98.51 Tubal ligation status
CPT/HCPCS: 36415; 74022; 74177; 80048; 80076; 80307; 81001; 81025; 82150; 82550; 83690; 84484; 85025; 85610; 85730; 86705; 86709; 86803; 87340; 96361; 96372; 96374; 96375; 96376; 99285; J1885; J2270; J2405; J3490; J7120; Q9966; Q9967

== ENCOUNTER 2018-12-11 14:11 | Emergency (ER) | payer OTHER ==
[~2018-12-11] VITALS: Ht 167.6 cm; Wt 103.9 kg
[~2018-12-11 14:11] MED LIST changes: +FAMO-63 PO; +HYDR-1179 PO; +ONDA8TAB9 PO
[2018-12-11 15:13] LABS: BASO % 1 % (0-3); EOS # 0.3 x10^3/uL (0.0-0.7); EOS % 5 % (0-3); HEMATOCRIT 36.2 % (36.0-47.0); HEMOGLOBIN 12.5 g/dL (12.0-15.5); LYMPH # 1.7 x10^3/uL (1.0-4.8); LYMPH % 32 % (24-48); MEAN CORPUSCULAR HEMOGLOBIN 29 pg (25-35); MEAN CORPUSCULAR HGB CONC 34 g/dL (31-37); MEAN CORPUSCULAR VOLUME 83 fL (79-100); MONO # 0.4 x10^3/uL (0.0-1.1); MONO % 8 % (0-9); NEUT # 2.8 x10^3uL (1.8-7.7); NEUT % 54 % (31-73); PLATELET COUNT 291 x10^3/uL (140-400); RED BLOOD COUNT 4.34 x10^6/uL (3.50-5.40); RED CELL DISTRIBUTION WIDTH 18.3 % (11.5-14.5); WHITE BLOOD COUNT 5.3 x10^3/uL (4.0-11.0)
[2018-12-11] MEDS ORDERED: oxyCODONE/APAP 5/325 1 TAB TABLET PO ONE (15:15)
[2018-12-11] MEDS ORDERED: ONDANSETRON PF 4 MG/2 ML VIAL. IV ONE (15:15)
[2018-12-11 15:21] LABS: CLARITY,URINE HAZY; COLOR,URINE YELLOW
[2018-12-11 15:22] LABS: BACTERIA,URINE FEW /HPF (0-FEW); BILIRUBIN,URINE NEG (NEG); GLUCOSE,URINE NEG (NEG); NITRITE,URINE NEG (NEG); SQUAMOUS EPITHELIAL CELL,UR OCC /LPF; U PREG PATIENT NEGATIVE (NEG); UROBILINOGEN,URINE 0.2 mg/dL (0.2 mg/dL); WBC,URINE OCC /HPF (0-4)
[2018-12-11 15:25] LABS: ALBUMIN 3.4 g/dL (3.4-5.0); ALBUMIN/GLOBULIN RATIO 0.8 (1.0-1.7); GFR 93.2; POTASSIUM 3.7 mmol/L (3.5-5.1); TOTAL BILIRUBIN 0.2 mg/dL (0.2-1.0); TOTAL PROTEIN 7.5 g/dL (6.4-8.2)
[2018-12-11] MEDS ORDERED: KETOROLAC 15 MG/ML VIAL. IV ONE (15:30)
[2018-12-11] MEDS ORDERED: METOCLOPRAMIDE HCL 10 MG/2 ML VIAL. IV ONE (15:45)
[2018-12-11 15:50] LABS: CALCIUM 8.7 mg/dL (8.5-10.1); CREATININE 0.7 mg/dL (0.6-1.0)
[2018-12-11 16:20] VITALS: BP 94/47
[2018-12-11] MEDS ORDERED: HYDR-3165 PO (16:33)
[2018-12-11] MEDS ORDERED: GABA-585 PO (16:33)
--- NOTE | 2018-12-11 16:52 | PHYS DOC ---
Past History Past Medical History: Other Past Surgical History: Cholecystectomy, Other Alcohol Use: None Drug Use: None Adult General Chief Complaint Chief Complaint: ABDOMINAL PAIN HPI HPI Patient is a 38 waspresentingwithchiefcomplaintof abdominal pain onset months ago same as when she was here 11/19 she has been takikng vicoprofen pain increasing she couldnt take it anymroe so came here 11/19 ct scan i reviewed, she says the pain is same today epig ruq a/w nausesa, sharp and burning no lower quad pain has f/u obgyn this tuesday for the ovarian lesion seen 11/19. overall no fever Review of Systems Review of Systems Constitutional: Denies fever or chills [] Eyes: Denies change in visual acuity, redness, or eye pain [] HENT: Denies nasal congestion or sore throat [] Respiratory: Denies cough or shortness of breath [] C Musculoskeletal: Endocrine: Denies polyuria or polydipsia [] All other systems were reviewed and found to be within normal limits, except as documented in this note. Current Medications Current Medications Current Medications Medications (Trade) Dose Ordered Sig/[place] Start Time Stop Time Status Last Admin Dose Admin Fentanyl Citrate (Fentanyl 2ml Vial) 50 mcg 1X ONCE 12/11/18 15:45 12/11/18 15:52 DC 12/11/18 15:59 50 MCG Ketorolac Tromethamine (Toradol 15mg Vial) 30 mg 1X ONCE 12/11/18 15:30 12/11/18 15:31 DC 12/11/18 15:26 30 MG Metoclopramide HCl (Reglan Vial) 10 mg 1X ONCE 12/11/18 15:45 12/11/18 15:52 DC 12/11/18 15:56 10 MG Ondansetron HCl (Zofran) 4 mg 1X ONCE 12/11/18 15:15 12/11/18 15:16 DC 12/11/18 15:23 4 MG Oxycodone/ Acetaminophen (Percocet 5/325) 2 tab 1X ONCE 12/11/18 15:15 12/11/18 15:16 DC 12/11/18 15:29 2 TAB Allergies Allergies Allergies Coded Allergies Type Severity Reaction Last Updated Verified No Known Drug Allergies 11/19/18 No Physical Exam Physical Exam Constitutional: Well developed, well nourished, no acute distress, non-toxic appearance. [] HENT: Normocephalic, atraumatic, bilateral external ears normal, oropharynx moist, no oral exudates, nose normal. [] Eyes: PERRLA, EOMI, conjunctiva normal, no discharge. [] Neck: Normal range of motion, no tenderness, supple, no stridor. [] Cardiovascular:Heart rate regular rhythm, no murmur [] Lungs & Thorax: Bilateral breath sounds clear to auscultation [] Abdomen: Bowel sounds normal, soft, ep;igastric and ruq (most ttp at site of surgical incision in epigastric where she was stabeed with glass six months ago) tenderness, no masses, no pulsatile masses. [] Skin: Warm, dry, no erythema, no rash. [] Back: No tenderness, no CVA tenderness. [] Extremities: No tenderness, no cyanosis, no clubbing, ROM intact, no edema. [] Neurologic: Alert and oriented X 3, normal motor function, normal sensory function, no focal deficits noted. [] Psychologic: Affect normal, judgement normal, mood normal. [] Current Patient Data Vital Signs Vital Signs Date Time Temp Pulse Resp B/P (MAP) Pulse Ox O2 Delivery O2 Flow Rate FiO2 12/11/18 16:20 81 20 94/47 (63) 94 Room Air 12/11/18 14:25 98.3 Lab Results Laboratory Tests Test 12/11/18 14:29 12/11/18 14:45 Urine Collection Type Unknown Urine Color Yellow Urine Clarity Hazy Urine pH 6.0 Urine Specific [place] >=1.030 Urine Protein 30 mg/dl (NEG-TRACE) Urine Glucose (UA) Neg mg/dL (NEG) Urine Ketones (Stick) Neg mg/dL (NEG) Urine Blood Large (NEG) Urine Nitrite Neg (NEG) Urine Bilirubin Neg (NEG) Urine Urobilinogen Dipstick 0.2 mg/dL (0.2 mg/dL) Urine Leukocyte Esterase Neg (NEG) Urine RBC 11-20 /HPF (0-2) Urine WBC Occ /HPF (0-4) Urine Squamous Epithelial Cells Occ /LPF Urine Bacteria Few /HPF (0-FEW) Urine Test Negative (NEG) White Blood Count 5.3 x10^3/uL (4.0-11.0) Red Blood Count 4.34 x10^6/uL (3.50-5.40) Hemoglobin 12.5 g/dL (12.0-15.5) Hematocrit 36.2 % (36.0-47.0) Mean Corpuscular Volume 83 fL (79-100) Mean Corpuscular Hemoglobin 29 pg (25-35) Mean Corpuscular Hemoglobin Concent 34 g/dL (31-37) Red Cell Distribution Width 18.3 % (11.5-14.5) H Platelet Count 291 x10^3/uL (140-400) Neutrophils (%) (Auto) 54 % (31-73) Lymphocytes (%) (Auto) 32 % (24-48) Monocytes (%) (Auto) 8 % (0-9) Eosinophils (%) (Auto) 5 % (0-3) H Basophils (%) (Auto) 1 % (0-3) Neutrophils # (Auto) 2.8 x10^3uL (1.8-7.7) Lymphocytes # (Auto) 1.7 x10^3/uL (1.0-4.8) Monocytes # (Auto) 0.4 x10^3/uL (0.0-1.1) Eosinophils # (Auto) 0.3 x10^3/uL (0.0-0.7) Basophils # (Auto) 0.0 x10^3/uL (0.0-0.2) Sodium Level 138 mmol/L (136-145) Potassium Level 3.7 mmol/L (3.5-5.1) Chloride Level 105 mmol/L (98-107) Carbon Dioxide Level 24 mmol/L (21-32) Anion Gap 9 (6-14) Blood Urea Nitrogen 12 mg/dL (7-20) Creatinine 0.7 mg/dL (0.6-1.0) Estimated GFR (Cockcroft-Gault) 93.2 BUN/Creatinine Ratio 17 (6-20) Glucose Level 109 mg/dL (70-99) H Calcium Level 8.7 mg/dL (8.5-10.1) Total Bilirubin 0.2 mg/dL (0.2-1.0) Aspartate Amino Transferase (AST) 121 U/L (15-37) H Alanine Aminotransferase (ALT) 144 U/L (14-59) H Alkaline Phosphatase 204 U/L (46-116) H Total Protein 7.5 g/dL (6.4-8.2) Albumin 3.4 g/dL (3.4-5.0) Albumin/Globulin Ratio 0.8 (1.0-1.7) L Lipase 227 U/L (73-393) EKG EKG [] Radiology/Procedures Radiology/Procedures [] Course & Med Decision Making Course & Med Decision Making Pertinent Labs and Imaging studies reviewed. (See chart for details) []38 yo f with chronic abdominal pain. Recent CT scan earlier this month with the identical type of pain I reviewed it there is no acute pathology. Her symptomatology and exam is very consistent with her previous emergency room visits she also had a CT scan on November 17 I think that doing another CT scan tonight would not be the right decision. LFTs are overall stable. pt felt better after fentanyl. did vomit after dose of norco. i wonder if she is having some neuropathic type pain from her surgery six months ago (she has been h aving pain for about four months). try gabapentin short course norco , advised this is only temporary get primary, gave phone number for pain mgmt as well Dragon Disclaimer Dragon Disclaimer This electronic medical record was generated, in whole or in part, using a voice recognition dictation system. Departure Departure: Impression: Primary Impression: Abdominal pain Disposition: HOME, SELF-CARE Condition: STABLE Patient Instructions: Abdominal Pain (Nonspecific) Scripts Gabapentin (GABAPENTIN ) 100 Mg Capsule 100 MG PO TID for NEUROGENIC PAIN, #30 CAP Prov: MARIA DE JESUS CLARKE MD 12/11/18 Hydrocodone Bit/Acetaminophen (NORCO 5-325 TABLET) 1 Each Tablet 1 TAB PO BID PRN for PAIN, #15 TAB Prov: MARIA DE JESUS CLARKE MD 12/11/18 MARIA DE JESUS CLARKE MD Dec 11, 2018 16:52
[2018-12-12] MEDS ORDERED: HYOS0.1264 PO (23:56)
[2018-12-12] MEDS ORDERED: OXAP600T2 PO (23:56)
[2018-12-12] MEDS ORDERED: METO10TA81 PO (23:56)
== END 2018-12-11 16:55 | disposition home or self-care (01) ==
LOC: ER 14:11
DX: R10.13 Epigastric pain (principal); Z90.49 Acquired absence of other specified parts of digestive tract
CPT/HCPCS: 36415; 80053; 81001; 81025; 83690; 85025; 96374; 96375; 99284; J1885; J2405; J2765; J3010

== ENCOUNTER 2018-12-12 21:37 | Emergency (ER) | payer OTHER ==
[~2018-12-12] VITALS: Ht 167.6 cm; Wt 94.7 kg
[~2018-12-12 21:37] MED LIST changes: +GABA-585 PO; +HYDR-3165 PO
--- NOTE | 2018-12-12 22:29 | PHYS DOC ---
Past History Past Medical History: Kidney Stones, Pancreatitis Past Surgical History: Appendectomy, Cholecystectomy, Tubal ligation, Other Additional Past Surgical Histo: knee Smoking: Cigarettes Alcohol Use: None Drug Use: None Adult General Chief Complaint Chief Complaint: ABDOMINAL PAIN HPI HPI Patient is a 38-year-old female presents with right-sided abdominal pain, similar to previous pancreatitis. This has been going on for the past day or 2. She was seen in the emergency department yesterday. Had some nausea but no vomiting at that time. She was discharged on outpatient pain medicines. Since that time she has developed nausea and vomiting and is unable to tolerate the pain medicines. Pain medicines were only providing minimal relief. No known history of an 8 cm teratoma on the right and is pending an [employer] STOCK[employer]EE[employer] appointment later this week. Her other surgical history is significant for cholecystectomy and appendectomy and tubal ligation. She is currently on her menstrual cycle. Reports that the pain is severe and crampy in nature.[] Review of Systems Review of Systems Constitutional: Denies fever or chills [] Eyes: Denies change in visual acuity, redness, or eye pain [] HENT: Denies nasal congestion or sore throat [] Respiratory: Denies cough or shortness of breath [] Cardiovascular: No chest pain or palpitations[] GI: See history of present illness[] : Denies dysuria or hematuria [] Musculoskeletal: Denies back pain or joint pain [] Integument: Denies rash or skin lesions [] Neurologic: Denies headache, focal weakness or sensory changes [] Endocrine: Denies polyuria or polydipsia [] All other systems were reviewed and found to be within normal limits, except as documented in this note. Allergies Allergies Allergies Coded Allergies Type Severity Reaction Last Updated Verified No Known Drug Allergies 11/19/18 No Physical Exam Physical Exam Constitutional: Well developed, well nourished, mild to moderate discomfort, non-toxic appearance. [] HENT: Normocephalic, atraumatic, bilateral external ears normal, oropharynx m oist, no oral exudates, nose normal. [] Eyes: PERRLA, EOMI, conjunctiva normal, no discharge. [] Neck: Normal range of motion, no tenderness, supple, no stridor. [] Cardiovascular:Heart rate is tachycardic in the low 100s with a regular rhythm, no murmur [] Lungs & Thorax: Bilateral breath sounds clear to auscultation [] Abdomen: Bowel sounds normal, soft, right-sided abdominal tenderness, no rebound, no guarding, no rigidity, able to sit up and lay back with any difficulty, no masses, no pulsatile masses. [] Skin: Warm, dry, no erythema, no rash. [] Back: No tenderness, no CVA tenderness. [] Extremities: No tenderness, no cyanosis, no clubbing, ROM intact, no edema. [] Neurologic: Alert and oriented X 3, normal motor function, normal sensory function, no focal deficits noted. [] Psychologic: Affect normal, judgement normal, mood normal. [] Current Patient Data Vital Signs Vital Signs Date Time Temp Pulse Resp B/P (MAP) Pulse Ox O2 Delivery O2 Flow Rate FiO2 12/12/18 21:54 98.6 97 22 96 Room Air EKG EKG [] Radiology/Procedures Radiology/Procedures PROCEDURE: CT ABD PELV W/ IV CONTRST ONLY CT scan of the abdomen and pelvis with contrast 12/12/2018 CLINICAL HISTORY: Right-sided abdominal pain. TECHNIQUE: After the intravenous administration 75 cc of Omnipaque 350, contiguous, 5 mm axial sections were obtained through the abdomen and pelvis. One or more of the following individualized dose reduction techniques were utilized for this study: 1. Automated exposure control. 2. Adjustment of the mA and/or kV according to patient size. 3. Use of iterative reconstruction technique. FINDINGS: Comparison study is dated 11/19/2018. Images through the lung bases demonstrate minimal dependent subsegmental atelectasis bilaterally. The liver parenchyma has a decreased attenuation consistent with fatty infiltration. The spleen, pancreas, antigen glands are within normal limits. Nonobstructing renal calculi are seen which measure 2 to 3 mm in size. The abdominal aorta tapers normally. Surgical clips are seen within the gallbladder fossa consistent with a cholecystectomy. No free fluid or free air is seen within the abdomen. There is no evidence of bowel obstruction. Air and stool is seen throughout the colon. The patient is post appendectomy. Images through the pelvis demonstrate the urinary bladder to be contracted. A 7.6 cm well-defined oval-shaped adnexal mass which contains fat and calcifications is seen consistent with a dermoid/teratoma, unchanged. No free fluid is noted. The osseous structures are unchanged. IMPRESSION: No acute abnormality is seen.[] Course & Med Decision Making Course & Med Decision Making Pertinent Labs and Imaging studies reviewed. (See chart for details) ED course: Patient arrived, was placed in bed, and tolerated exam well. She was transported to and from radiology with any complications. After the return of the laboratory and imaging studies, these were discussed with the patient who voiced understanding. All questions were answered. 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 Medical decision making: There is no evidence of an acute pancreatitis by either laboratory or imaging findings. No evidence of an obstruction or perforation. No evidence of oral intake intolerance. Patient has had previous appendectomy and cholecystectomy. No evidence of pyelonephritis, nor ectopic . Review of K tracks shows that the patient has since February 2018, 20 prescrip tions for narcotics and benzodiazepines that appear distributed among 14 providers. This makes me reluctant to prescribe additional narcotic pain medicine at this time.[] Dragon Disclaimer Dragon Disclaimer This electronic medical record was generated, in whole or in part, using a voice recognition dictation system. Departure Departure: Impression: Primary Impression: Abdominal pain Disposition: 01 HOME, SELF-CARE Condition: IMPROVED Referrals: PCP,BERONICA (PCP) Patient Instructions: Abdominal Pain, Nausea and Vomiting Additional Instructions: Follow-up with your regular doctor in 2 days. If you do not have a regular doctor list of local clinics will be provided for you. Return to the ER if unable to tolerate liquids or any other concerns. Drink plenty of fluids, frequent small sips. No fatty foods, no milk, and no pepper for the next 48 hours. For the next 48 hours eat a diet rich in carbohydrates with foods such as bananas, rice, applesauce, and toast. Scripts Oxaprozin (OXAPROZIN) 600 Mg Tablet 600 MG PO BID for pain, #20 TAB Prov: NATASHA MURILLO DO 12/12/18 Hyoscyamine Sulfate (LEVSIN) 0.125 Mg Tablet 0.125 MG PO QID for abdominal pain/cramping, #30 TAB Prov: NATASHA MURILLO DO 12/12/18 Metoclopramide Hcl (REGLAN) 10 Mg Tablet 10 MG PO QID for nausea and vomiting, #30 TAB Prov: NATASHA MURILLO DO 12/12/18 Problem Qualifiers Primary Impression: Abdominal pain Abdominal location: unspecified location Qualified Codes: R10.9 - Unspecified abdominal pain NATASHA MURILLO DO Dec 12, 2018 22:28
[2018-12-12] MEDS: MORPHINE SULFATE 4 MG/ML DISP.SYRIN. IV/SQ PRN (22:31)
[2018-12-12] MEDS: IV NORMAL SALINE 1,000ML 1,000 ML IV SCH (22:32)
[2018-12-12 22:39] LABS: BASO % 1 % (0-3); EOS # 0.4 x10^3/uL (0.0-0.7); EOS % 9 % (0-3); HEMATOCRIT 35.2 % (36.0-47.0); HEMOGLOBIN 11.9 g/dL (12.0-15.5); LYMPH # 1.7 x10^3/uL (1.0-4.8); LYMPH % 42 % (24-48); MEAN CORPUSCULAR HEMOGLOBIN 28 pg (25-35); MEAN CORPUSCULAR HGB CONC 34 g/dL (31-37); MEAN CORPUSCULAR VOLUME 83 fL (79-100); MONO # 0.4 x10^3/uL (0.0-1.1); MONO % 10 % (0-9); NEUT # 1.5 x10^3uL (1.8-7.7); NEUT % 38 % (31-73); PLATELET COUNT 260 x10^3/uL (140-400); RED BLOOD COUNT 4.22 x10^6/uL (3.50-5.40); RED CELL DISTRIBUTION WIDTH 17.9 % (11.5-14.5)
[2018-12-12] MEDS: IOHEXOL 300 MG/ML 75 ML VIAL. IV ONE (22:40)
[2018-12-12 22:45] LABS: BARBITURATES NEG (NEG); BENZODIAZEPINES POS (NEG); CANNABINOIDS NEG (NEG); COCAINE NEG (NEG); METHADONE NEG (NEG); OPIATES POS (NEG); PHENCYCLIDINE NEG (NEG)
[2018-12-12] MEDS ORDERED: PROCHLORPERAZINE 10 MG/2 ML VIAL. IV ONE (22:45)
[2018-12-12 22:48] LABS: BACTERIA,URINE 0 /HPF (0-FEW); BILIRUBIN,URINE NEG (NEG); CLARITY,URINE CLEAR; COLOR,URINE STRAW; GLUCOSE,URINE NEG (NEG); NITRITE,URINE NEG (NEG); RBC,URINE 20-40 /HPF (0-2); SQUAMOUS EPITHELIAL CELL,UR OCC /LPF; UROBILINOGEN,URINE 0.2 mg/dL (0.2 mg/dL)
[2018-12-12 22:50] LABS: AMPHETAMINE/METHAMPHETAMINE NEG (NEG)
[2018-12-12 22:51] LABS: ALBUMIN 3.1 g/dL (3.4-5.0); ALBUMIN/GLOBULIN RATIO 0.8 (1.0-1.7); CALCIUM 8.7 mg/dL (8.5-10.1); CREATININE 0.7 mg/dL (0.6-1.0); GFR 93.2; POTASSIUM 3.7 mmol/L (3.5-5.1); TOTAL BILIRUBIN 0.2 mg/dL (0.2-1.0); TOTAL PROTEIN 7.1 g/dL (6.4-8.2)
[2018-12-12] MEDS: HYOSCYAMINE 0.125 MG TAB.RAPDIS PO ONE (23:14)
--- NOTE | 2018-12-12 23:48 | RAD ---
CT scan of the abdomen and pelvis with contrast 12/12/2018 CLINICAL HISTORY: Right-sided abdominal pain. TECHNIQUE: After the intravenous administration 75 cc of Omnipaque 350, contiguous, 5 mm axial sections were obtained through the abdomen and pelvis. One or more of the following individualized dose reduction techniques were utilized for this study: 1. Automated exposure control. 2. Adjustment of the mA and/or kV according to patient size. 3. Use of iterative reconstruction technique. FINDINGS: Comparison study is dated 11/19/2018. Images through the lung bases demonstrate minimal dependent subsegmental atelectasis bilaterally. The liver parenchyma has a decreased attenuation consistent with fatty infiltration. The spleen, pancreas, antigen glands are within normal limits. Nonobstructing renal calculi are seen which measure 2 to 3 mm in size. The abdominal aorta tapers normally. Surgical clips are seen within the gallbladder fossa consistent with a cholecystectomy. No free fluid or free air is seen within the abdomen. There is no evidence of bowel obstruction. Air and stool is seen throughout the colon. The patient is post appendectomy. Images through the pelvis demonstrate the urinary bladder to be contracted. A 7.6 cm well-defined oval-shaped adnexal mass which contains fat and calcifications is seen consistent with a dermoid/teratoma, unchanged. No free fluid is noted. The osseous structures are unchanged. IMPRESSION: No acute abnormality is seen. Electronically signed by: Justin Muñiz MD (12/12/2018 11:44 PM) [facility]
[2018-12-12] MEDS ORDERED: HYOS0.1264 PO (23:56)
[2018-12-12] MEDS ORDERED: METO10TA81 PO (23:56)
[2018-12-12] MEDS ORDERED: OXAP600T2 PO (23:56)
[2018-12-13 00:29] VITALS: BP 116/81
== END 2018-12-13 00:37 | disposition home or self-care (01) ==
LOC: ER 21:37
DX: R10.9 Unspecified abdominal pain (principal); R11.2 Nausea with vomiting, unspecified; F17.210 Nicotine dependence, cigarettes, uncomplicated; Z87.442 Personal history of urinary calculi; Z90.49 Acquired absence of other specified parts of digestive tract; Z90.89 Acquired absence of other organs; Z98.51 Tubal ligation status
CPT/HCPCS: 36415; 74177; 80053; 80307; 81001; 83690; 85025; 96361; 96374; 99285; J2270; Q9967; J7030

== ENCOUNTER 2019-01-04 19:16 | Emergency (ER) | payer OTHER ==
[~2019-01-04] VITALS: Ht 167.6 cm; Wt 94.7 kg
[~2019-01-04 19:16] MED LIST changes: +HYOS0.1264 PO; +METO10TA81 PO; +OXAP600T2 PO
--- NOTE | 2019-01-04 19:39 | PHYS DOC ---
Past History Past Medical History: Kidney Stones, Pancreatitis Past Surgical History: Appendectomy, Cholecystectomy, Tubal ligation, Other Additional Past Surgical Histo: knee Smoking: Cigarettes Alcohol Use: None Drug Use: None Adult General Chief Complaint Chief Complaint: POST-OP PROBLEM HPI HPI Patient is a 38-year-old female who presents with complaint of postoperative pain after having had laparoscopic surgery this morning. Patient states she was released from hospital little after noon today. She states that she was prescribed oxycodone and has been taking the oxycodone but the pain has gotten to the point now where he is not manageable. Patient indicates that she has pain in her right shoulder especially when she breathes deep. She denies any vomiting or diarrhea. She also denies any fever. She rates pain at a 10 out of 10. Patient has not called her surgeon.[] Review of Systems Review of Systems Constitutional: Denies fever or chills [] Respiratory: Denies cough or shortness of breath [] Cardiovascular: No additional information not addressed in HPI [] GI: Complains of postoperative abdominal pain without vomiting or diarrhea [] Musculoskeletal: Complains of right shoulder pain [] Integument: Denies rash or skin lesions [] Allergies Allergies Allergies Coded Allergies Type Severity Reaction Last Updated Verified No Known Drug Allergies 11/19/18 No Physical Exam Physical Exam Constitutional: Well developed, well nourished, no acute distress, non-toxic appearance. [] Cardiovascular:Heart rate regular rhythm [] Lungs & Thorax: Bilateral breath sounds clear to auscultation [] Abdomen: Bowel sounds normal, soft, with mild diffuse tenderness. [] Skin: Warm, dry, no erythema, no rash. [] Extremities: No tenderness, no cyanosis, no clubbing, ROM intact, no edema. [] Current Patient Data Vital Signs Vital Signs Date Time Temp Pulse Resp B/P (MAP) Pulse Ox O2 Delivery O2 Flow Rate FiO2 01/04/19 19:29 99.1 73 20 97 EKG EKG [] Radiology/Procedures Radiology/Procedures [] Course & Med Decision Making Course & Med Decision Making Pertinent Labs and Imaging studies reviewed. (See chart for details) [] Dragon Disclaimer Dragon Disclaimer This electronic medical record was generated, in whole or in part, using a voice recognition dictation system. Departure Departure: Impression: Primary Impression: Postoperative abdominal pain Disposition: 01 HOME, SELF-CARE Condition: STABLE Referrals: CHIKA AYERS (PCP) Patient Instructions: Pain Relief Preoperatively and Postoperatively Additional Instructions: Continue taking medications prescribed for your postoperative pain. Contact your surgeon first thing tomorrow morning for ongoing management of your pain. If symptoms worsen, contact your surgeon right away. DANIELE SLOAN Jr. DO Jan 04, 2019 19:39
[2019-01-04] MEDS: ONDANSETRON ODT 4 MG TAB.RAPDIS PO ONE (19:41)
[2019-01-04] MEDS: MORPHINE SULFATE 10 MG/ML SYRINGE. IM ONE (19:42)
[2019-01-04 20:16] VITALS: BP 119/83
== END 2019-01-04 20:17 | disposition home or self-care (01) ==
LOC: ER 19:16
DX: G89.18 Other acute postprocedural pain (principal); R10.84 Generalized abdominal pain; M25.511 Pain in right shoulder; F17.210 Nicotine dependence, cigarettes, uncomplicated; Z87.442 Personal history of urinary calculi; Z90.49 Acquired absence of other specified parts of digestive tract; Z90.89 Acquired absence of other organs; Z98.51 Tubal ligation status; Z98.890 Other specified postprocedural states
CPT/HCPCS: 96372; 99283; J2270; Q0162

== ENCOUNTER 2019-01-13 20:03 | Emergency (ER) | payer MEDICAID, OTHER ==
[~2019-01-13] VITALS: Ht 167.6 cm; Wt 99.8 kg
--- NOTE | 2019-01-13 20:18 | ED.ADGEN ---
Past History Past Medical History: Kidney Stones, Pancreatitis Past Surgical History: Appendectomy, Cholecystectomy, Tubal ligation, Other Additional Past Surgical Histo: knee Smoking: Cigarettes Alcohol Use: None Drug Use: None Adult General Chief Complaint Chief Complaint ".. I fell in the yard..and got this broken glass imbedded in my leg..." HPI HPI Patient is a 38 year old female who presents with above hx and complaints of embedded shard of glass in her right leg. Patient reportedly fell in her yard up on a large drinking glass. Distal neurovascular intact. Patient currently has active bleeding at site of laceration. Area irrigated and then injected wit h lidocaine. A 7 inch shard of glass was removed. Lacerations site was irrigated in range of motion with saline. Laceration closed with julio c. Patient monitor for infection. Patient to apply Polysporin 4 times a day. Patient to keep area clean and dry. Julio C out in 10 days. He warned that may have retained for body. Pt. follow-up primary care. Patient return of any co ncerns. Review of Systems Review of Systems Constitutional: Denies fever or chills [] Eyes: Denies change in visual acuity, redness, or eye pain [] HENT: Denies nasal congestion or sore throat [] Respiratory: Denies cough or shortness of breath [] Cardiovascular: No additional information not addressed in HPI [] GI: Denies abdominal pain, nausea, vomiting, bloody stools or diarrhea [] : Denies dysuria or hematuria [] Musculoskeletal: Denies back pain or joint pain [] Integument: Denies rash or skin lesions []laceration right thigh approximately 2 cm. Embedded shard of glass Neurologic: Denies headache, focal weakness or sensory changes [] Endocrine: Denies polyuria or polydipsia [] All other systems were reviewed and found to be within normal limits, except as documented in this note. Family History Family History Noncontributory Current Medications Current Medications Current Medications Medications (Trade) Dose Ordered Sig/Carlton Start Time Stop Time Status Last Admin Dose Admin Ceftriaxone Sodium (Rocephin Im) 1 gm 1X ONCE 01/13/19 20:30 01/13/19 20:31 DC 01/13/19 20:51 1 GM Diphtheria/ Tetanus/Acell Pertussis (Boostrix) 0.5 ml ONCE ONCE 01/13/19 21:45 01/13/19 21:45 DC 01/13/19 21:39 0.5 ML Tetanus/ Diphtheria Toxoids Adsorbed (Tenivac Vial) 0.5 ml ONCE ONCE 01/13/19 21:30 01/13/19 21:31 UNV Allergies Allergies Allergies Coded Allergies Type Severity Reaction Last Updated Verified No Known Drug Allergies 01/13/19 No Physical Exam Physical Exam Constitutional: in acute distress, non-toxic appearance. [] HENT: Normocephalic, atraumatic, bilateral external ears normal, oropharynx moist, no oral exudates, nose normal. [] Eyes: PERRLA, EOMI, conjunctiva normal, no discharge. [] Neck: Normal range of motion, no tenderness, supple, no stridor. [] Cardiovascular:Heart rate regular rhythm, no murmur [] Lungs & Thorax: Bilateral breath sounds equal at apex with scattered wheezes on auscultation [] Abdomen: Bowel sounds normal, soft, no tenderness, no masses, no pulsatile masses. [Obese. Old surgery scars Skin: Warm, dry, no erythema, no rash. [] Back: No tenderness, no CVA tenderness. [] Extremities: No tenderness, no cyanosis, no clubbing, ROM intact, no edema. [] Embedded glass and laceration as per history of present illness Neurologic: Alert and oriented X 3, normal motor function, normal sensory function, no focal deficits noted. [] Psychologic: Affect anxious, judgement normal, mood normal. [] Current Patient Data Vital Signs Vital Signs Date Time Temp Pulse Resp B/P (MAP) Pulse Ox O2 Delivery O2 Flow Rate FiO2 01/13/19 21:30 72 20 130/78 (95) 99 Room Air 01/13/19 20:05 98.4 EKG EKG [] Radiology/Procedures Radiology/Procedures [address] [address] IMAGING REPORT Signed PATIENT: KAREN BENNETT ACCOUNT: [id number] : 1980 LOCATION: ER AGE: 38 SEX: F EXAM STATUS: REG ER ORD. PHYSICIAN: JEAN-PIERRE YOUNG MD REASON: Post glass removal PROCEDURE: RIGHT FEMUR XRAY Exam performed: 2 views right femur. HISTORY: Post glass removal. DATE OF SERVICE: 01/13/2019. Comparison made to a previous x-ray right femur from earlier today at 8:31 PM. FINDINGS: AP and lateral view of the right femur demonstrates interval removal of radiopaque glass from the soft tissues of the mid thigh. There is mild soft tissue laceration. The hip and knee joint appears preserved. IMPRESSION: As above Electronically signed by: Kasey Kasper MD (01/13/2019 9:33 PM) [facility] DICTATED AND SIGNED BY: KASEY KASPER MD DATE: 01/13/192132 CC: JEAN-PIERRE YOUNG MD; PCP,NO ~ [][address] [address] IMAGING REPORT Signed PATIENT: KAREN BENNETT ACCOUNT: [id number] : 1980 LOCATION: ER AGE: 38 SEX: F EXAM STATUS: REG ER ORD. PHYSICIAN: JEAN-PIERRE YOUNG MD REASON: Glass in thigh PROCEDURE: RIGHT FEMUR XRAY Exam: Frontal and lateral views of the right femur. INDICATION: Glass in thigh TECHNIQUE: Frontal and lateral views of the right femur Comparisons: None FINDINGS: Triangular mildly radiopaque foreign body noted projecting within the anterior soft tissues of the thigh the level of the mid femoral diaphysis. No acute or healed fractures. Joint spaces are well-maintained. IMPRESSION: Triangular radiopaque foreign body within the anterior soft tissues of the thigh. No acute osseous abnormality. Electronically signed by: Juliette Fletcher MD (01/13/2019 9:34 PM) [facility] DICTATED AND SIGNED BY: JULIETTE FLETCHER MD DATE: 01/13/192133 CC: JEAN-PIERRE YOUNG MD; PCP,NO ~ Course & Med Decision Making Course & Med Decision Making Pertinent Labs and Imaging studies reviewed. (See chart for details)- Laceration repair as per history of present illness [] Final Impression Final Impression 1. 2 cm laceration right thigh 2. Embedded chart of glass-removed[] Dragon Disclaimer Dragon Disclaimer This electronic medical record was generated, in whole or in part, using a voice recognition dictation system. Discharge Summary Visit Information Final Diagnosis Problems Medical Problems: (1) Foreign body Status: Acute (2) Laceration Status: Acute Brief Hospital Course Allergies Allergies Coded Allergies Type Severity Reaction Last Updated Verified No Known Drug Allergies 01/13/19 No Vital Signs Vital Signs Date Time Temp Pulse Resp B/P (MAP) Pulse Ox O2 Delivery O2 Flow Rate FiO2 01/13/19 21:30 72 20 130/78 (95) 99 Room Air 01/13/19 20:05 98.4 Brief Hospital Course Ms. Bennett is a 38 old female who presented with in bed it started glasses in right thigh. Discharge Information Condition at Discharge: Improved, Stable Disposition/Orders: D/C to Home Dischare Medications Current Medications Ceftriaxone Sodium (Rocephin Im) 1 gm 1X ONCE IM Last administered on 01/13/19at 20:51; Admin Dose 1 GM; Start 01/13/19 at 20:30; Stop 01/13/19 at 20:31; Status DC Diphtheria/ Tetanus/Acell Pertussis (Boostrix) 0.5 ml STK-MED ONCE VAX IM ; Start 01/13/19 at 20:47; Stop 01/13/19 at 20:48; Status DC Tetanus/ Diphtheria Toxoids Adsorbed (Tenivac Vial) 0.5 ml ONCE ONCE VAX IM ; Start 01/13/19 at 21:30; Stop 01/13/19 at 21:31; Status UNV Diphtheria/ Tetanus/Acell Pertussis (Boostrix) 0.5 ml ONCE ONCE VAX IM Last ad ministered on 01/13/19at 21:39; Admin Dose 0.5 ML; Start 01/13/19 at 21:45; Stop 01/13/19 at 21:45; Status DC Active Scripts Active Keflex (Cephalexin) 500 Mg Capsule 500 Mg PO TID Reported [xanax] Dragon Disclaimer This chart was dictated in whole or in part using Voice Recognition software in a busy, high-work load, and often noisy Emergency Department environment. It may contain unintended and wholly unrecognized errors or omissions. JEAN-PIERRE YOUNG MD Jan 13, 2019 20:18
[2019-01-13] MEDS ORDERED: cefTRIAXone IM 1 GM VIAL IM ONE (20:30)
[2019-01-13] MEDS ORDERED: DIPHTH,PERTUSS(ACELL),TET TOX 0.5 ML DISP.SYRIN. VAX IM ONE ×2 (20:47→21:45)
[2019-01-13 21:30] VITALS: BP 130/78
[2019-01-13] MEDS ORDERED: TETANUS AND DIPHTHERIA TOX/PF 0.5 ML VIAL. VAX IM ONE (21:30)
--- NOTE | 2019-01-13 21:36 | RAD ---
Exam performed: 2 views right femur. HISTORY: Post glass removal. DATE OF SERVICE: 01/13/2019. Comparison made to a previous x-ray right femur from earlier today at 8:31 PM. FINDINGS: AP and lateral view of the right femur demonstrates interval removal of radiopaque glass from the soft tissues of the mid thigh. There is mild soft tissue laceration. The hip and knee joint appears preserved. IMPRESSION: As above Electronically signed by: Kasey Kasper MD (01/13/2019 9:33 PM) [facility]
--- NOTE | 2019-01-13 21:37 | RAD ---
Exam: Frontal and lateral views of the right femur. INDICATION: Glass in thigh TECHNIQUE: Frontal and lateral views of the right femur Comparisons: None FINDINGS: Triangular mildly radiopaque foreign body noted projecting within the anterior soft tissues of the thigh the level of the mid femoral diaphysis. No acute or healed fractures. Joint spaces are well-maintained. IMPRESSION: Triangular radiopaque foreign body within the anterior soft tissues of the thigh. No acute osseous abnormality. Electronically signed by: Juliette Juarez MD (01/13/2019 9:34 PM) [facility]
[2019-01-13] MEDS ORDERED: CEPH-264 PO (21:40)
== END 2019-01-13 21:44 | disposition home or self-care (01) ==
LOC: ER 20:03
DX: S71.121A Laceration with foreign body, right thigh, initial encounter (principal); Z87.442 Personal history of urinary calculi; F17.210 Nicotine dependence, cigarettes, uncomplicated; W18.02XA Striking against glass with subsequent fall, initial encounter; Y93.89 Activity, other specified; Y92.096 Garden or yard of other non-institutional residence as the place of occurrence of the external cause; Y99.8 Other external cause status
CPT/HCPCS: 12031; 73552; 90471; 90715; 96372; 99284; J0696; 99285-25

== ENCOUNTER 2019-02-12 21:02 | Emergency (ER) | payer MEDICAID ==
[~2019-02-12] VITALS: Ht 167.6 cm; Wt 94.7 kg
[~2019-02-12 21:02] MED LIST changes: +CEPH-264 PO
[2019-02-12 21:12] VITALS: BP 136/96
--- NOTE | 2019-02-12 21:25 | PHYS DOC ---
Past History Past Medical History: Anxiety, Depression, Kidney Stones Past Surgical History: Appendectomy, Cholecystectomy, Oophorectomy, Other Additional Past Surgical Histo: knee, teratoma resection�ovary Smoking: Cigarettes Alcohol Use: None Drug Use: None Adult General Chief Complaint Chief Complaint: ABDOMINAL PAIN HPI HPI Patient is a 39-year-old female presents with right-sided abdominal pain that has been present for the past 4 days. She has had some nausea and vomiting. No blood in the emesis. No diarrhea. No travel. 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 She is pending an EGD later this month. Oral intake makes the symptoms worse. Nothing really seems to make them better. No radiation of the discomfort. Discomfort is achy in nature and moderate to severe in intensity.[] Review of Systems Review of Systems Constitutional: Denies fever or chills [] Eyes: Denies change in visual acuity, redness, or eye pain [] HENT: Denies nasal congestion or sore throat [] Respiratory: Denies cough or shortness of breath [] Cardiovascular: No chest pain or palpitations[] GI: See history of present illness[] : Denies dysuria or hematuria [] Musculoskeletal: Denies back pain or joint pain [] Integument: Denies rash or skin lesions [] Neurologic: Denies headache, focal weakness or sensory changes [] Endocrine: Denies polyuria or polydipsia [] All other systems were reviewed and found to be within normal limits, except as documented in this note. Allergies Allergies Allergies Coded Allergies Type Severity Reaction Last Updated Verified No Known Drug Allergies 01/13/19 No Physical Exam Physical Exam Constitutional: Well developed, well nourished, no acute distress, non-toxic appearance. [] HENT: Normocephalic, atraumatic, bilateral external ears normal, oropharynx moist, no oral exudates, nose normal. [] Eyes: PERRLA, EOMI, conjunctiva normal, no discharge. [] Neck: Normal range of motion, no tenderness, supple, no stridor. [] Cardiovascular:Heart rate regular rhythm, no murmur [] Lungs & Thorax: Bilateral breath sounds clear to auscultation [] Abdomen: Bowel sounds normal, soft, right-sided tenderness without rebound, no guarding, no rigidity, no masses, no pulsatile masses. [] Skin: Warm, dry, no erythema, no rash. [] Back: No tenderness, no CVA tenderness. [] Extremities: No tenderness, no cyanosis, no clubbing, ROM intact, no edema. [] Neurologic: Alert and oriented X 3, normal motor function, normal sensory function, no focal deficits noted. [] Psychologic: Affect normal, judgement normal, mood normal. [] Current Patient Data Vital Signs Vital Signs Date Time Temp Pulse Resp B/P (MAP) Pulse Ox O2 Delivery O2 Flow Rate FiO2 02/12/19 21:12 98.8 105 99 Room Air EKG EKG [] Radiology/Procedures Radiology/Procedures PROCEDURE: CT ABD PELV W/ IV CONTRST ONLY CT abdomen and pelvis with contrast. HISTORY: Right-sided abdominal pain CT scan the abdomen and pelvis was done using 75 mL Omnipaque 300 contrast. Lung bases are clear. There is no effusion. Liver is normal in appearance. Patient's had a cholecystectomy. Spleen and adrenal glands are unremarkable. There is no pancreatic lesion identified. A ureteral calculus is not identified. There is mildly prominent extrarenal pelvis in each kidney. There is moderate stool in the colon. There is no small bowel obstruction. There is a small midline hernia in the upper abdomen. There is a 1.8 cm follicle in the left ovary. Uterus and right ovary are normal. IMPRESSION: 1. Prominent extrarenal pelvis in each kidney but no ureteral calculus noted.. 2. No abdominal or pelvic mass or other acute finding noted. 3. Small anterior abdominal wall hernia in the upper abdomen.[] Course & Med Decision Making Course & Med Decision Making Pertinent Labs and Imaging studies reviewed. (See chart for details) ED course: Patient arrived, was placed in bed, and tolerated exam well. IV access was established. She was given fluids, antiemetics, and pain medicine. K tracks was reviewed and note that she has multiple narcotic prescriptions from multiple physicians. She was oral intake tolerant while in the emergency department. She had some good relief with the medicines given. She was transported to and from radiology with any complications. After return lab and imaging findings, went to inform the patient of these findings and found that she had eloped from the emergency department. Medical decision making: There is no evidence of obstruction, oral intake intolerance, perforation, nor other surgical pathology.[] Dragon Disclaimer Dragon Disclaimer This electronic medical record was generated, in whole or in part, using a voice recognition dictation system. Departure Departure: Impression: Primary Impression: Abdominal pain Additional Impression: Nausea and vomiting Disposition: 01 HOME, SELF-CARE Condition: IMPROVED Referrals: PCP,NO (PCP) Patient Instructions: Abdominal Pain, Nausea and Vomiting Additional Instructions: Drink plenty of fluids, frequent small sips. No fatty foods, no milk, and no pepper for the next 48 hours. For the next 48 hours eat a diet rich in carbohydrates with foods such as bananas, rice, applesauce, and toast. Follow-up with your regular doctor in 2 days. Return to the ER if unable tolerate liquids, blood in the emesis, or any other concerns. Scripts Metoclopramide Hcl (REGLAN) 10 Mg Tablet 10 MG PO QID for nausea and vomiting, #30 TAB Prov: NATASHA MURILLO DO 02/12/19 Hyoscyamine Sulfate (LEVSIN) 0.125 Mg Tablet 0.125 MG PO QID for abdominal pain/cramping, #30 TAB Prov: NATASHA MURILLO DO 02/12/19 Problem Qualifiers Primary Impression: Abdominal pain Abdominal location: unspecified location Qualified Codes: R10.9 - Unspecified abdominal pain Additional Impression: Nausea and vomiting Vomiting type: unspecified Vomiting Intractability: non-intractable Qualified Codes: R11.2 - Nausea with vomiting, unspecified NATASHA MURILLO DO Feb 12, 2019 21:25
[2019-02-12] MEDS ORDERED: HYOSCYAMINE 0.125 MG TAB.RAPDIS PO ONE (21:30)
[2019-02-12] MEDS ORDERED: PROCHLORPERAZINE 10 MG/2 ML VIAL. IV ONE (21:30)
[2019-02-12] MEDS ORDERED: KETOROLAC 30 MG/ML VIAL. IV ONE (21:30)
[2019-02-12] MEDS ORDERED: IV NORMAL SALINE 1,000ML 1,000 ML IV SCH (21:30)
[2019-02-12 21:47] LABS: BASO % 1 % (0-3); EOS # 0.3 x10^3/uL (0.0-0.7); EOS % 6 % (0-3); HEMATOCRIT 37.9 % (36.0-47.0); HEMOGLOBIN 12.8 g/dL (12.0-15.5); LYMPH # 2.1 x10^3/uL (1.0-4.8); LYMPH % 38 % (24-48); MEAN CORPUSCULAR HEMOGLOBIN 28 pg (25-35); MEAN CORPUSCULAR HGB CONC 34 g/dL (31-37); MEAN CORPUSCULAR VOLUME 83 fL (79-100); MONO # 0.6 x10^3/uL (0.0-1.1); MONO % 11 % (0-9); NEUT # 2.4 x10^3uL (1.8-7.7); NEUT % 44 % (31-73); PLATELET COUNT 239 x10^3/uL (140-400); RED BLOOD COUNT 4.59 x10^6/uL (3.50-5.40); RED CELL DISTRIBUTION WIDTH 17.3 % (11.5-14.5); WHITE BLOOD COUNT 5.4 x10^3/uL (4.0-11.0)
[2019-02-12 21:54] LABS: AMPHETAMINE/METHAMPHETAMINE NEG (NEG); BARBITURATES NEG (NEG); BENZODIAZEPINES POS (NEG); CANNABINOIDS NEG (NEG); COCAINE NEG (NEG); METHADONE NEG (NEG); OPIATES POS (NEG); PHENCYCLIDINE NEG (NEG)
[2019-02-12 21:56] LABS: BILIRUBIN,URINE NEG (NEG); CLARITY,URINE CLEAR; COLOR,URINE STRAW; GLUCOSE,URINE NEG (NEG)
[2019-02-12 21:57] LABS: BACTERIA,URINE FEW /HPF (0-FEW); NITRITE,URINE NEG (NEG); RBC,URINE 0 /HPF (0-2); SQUAMOUS EPITHELIAL CELL,UR MOD /LPF; UROBILINOGEN,URINE 0.2 mg/dL (0.2 mg/dL); WBC,URINE RARE /HPF (0-4)
[2019-02-12 21:59] LABS: ALBUMIN 3.6 g/dL (3.4-5.0); ALBUMIN/GLOBULIN RATIO 0.8 (1.0-1.7); CREATININE 0.8 mg/dL (0.6-1.0); GFR 79.4; POTASSIUM 3.8 mmol/L (3.5-5.1); TOTAL BILIRUBIN 0.2 mg/dL (0.2-1.0); TOTAL PROTEIN 7.9 g/dL (6.4-8.2)
[2019-02-12] MEDS ORDERED: CONTRAST GIVEN MC PRN (22:15)
[2019-02-12] MEDS ORDERED: IOHEXOL 300 MG/ML 75 ML VIAL. IV ONE (23:00)
--- NOTE | 2019-02-12 23:06 | RAD ---
CT abdomen and pelvis with contrast. HISTORY: Right-sided abdominal pain CT scan the abdomen and pelvis was done using 75 mL Omnipaque 300 contrast. Lung bases are clear. There is no effusion. Liver is normal in appearance. Patient's had a cholecystectomy. Spleen and adrenal glands are unremarkable. There is no pancreatic lesion identified. A ureteral calculus is not identified. There is mildly prominent extrarenal pelvis in each kidney. There is moderate stool in the colon. There is no small bowel obstruction. There is a small midline hernia in the upper abdomen. There is a 1.8 cm follicle in the left ovary. Uterus and right ovary are normal. IMPRESSION: 1. Prominent extrarenal pelvis in each kidney but no ureteral calculus noted.. 2. No abdominal or pelvic mass or other acute finding noted. 3. Small anterior abdominal wall hernia in the upper abdomen. PQRS Compliance Statement: One or more of the following individualized dose reduction techniques were utilized for this examination: 1. Automated exposure control 2. Adjustment of the mA and/or kV according to patient size 3. Use of iterative reconstruction technique Electronically signed by: Franco Soliz MD (02/12/2019 11:03 PM) [facility]
[2019-02-12] MEDS ORDERED: METO10TA81 PO (23:11)
[2019-02-12] MEDS ORDERED: HYOS0.1264 PO (23:11)
== END 2019-02-12 23:20 | disposition home or self-care (01) ==
LOC: ER 21:02
DX: R10.9 Unspecified abdominal pain (principal); R11.2 Nausea with vomiting, unspecified; F17.210 Nicotine dependence, cigarettes, uncomplicated; Z87.442 Personal history of urinary calculi; Z90.49 Acquired absence of other specified parts of digestive tract; Z90.89 Acquired absence of other organs; Z90.721 Acquired absence of ovaries, unilateral
CPT/HCPCS: 36415; 74177; 80053; 80307; 81001; 81025; 83690; 85025; 96361; 96374; 96375; 99285; J0780; J1885; Q9967; J7030

== ENCOUNTER 2019-08-06 23:04 | Emergency (ER) | payer MEDICAID ==
[~2019-08-06] VITALS: Ht 167.6 cm; Wt 94.7 kg
[2019-08-06] MEDS ORDERED: KETOROLAC 30 MG/ML VIAL. IVP ONE (23:30)
[2019-08-06] MEDS ORDERED: IV NORMAL SALINE 1,000ML 1,000 ML IV ONE (23:30)
--- NOTE | 2019-08-06 23:37 | PHYS DOC ---
Past History Past Medical History: Anxiety, Depression, Kidney Stones Past Surgical History: Appendectomy, Cholecystectomy, Oophorectomy, Other Additional Past Surgical Histo: knee, teratoma resectionovary Smoking: Cigarettes Alcohol Use: None Drug Use: None Adult General Chief Complaint Chief Complaint: ABDOMINAL PAIN HPI HPI 39-year-old female presents with left-sided abdominal pain. She was brought in by EMS. She tells me she started to have left sided abdominal pain last night and has gotten worse during the day. The patient was recently seen at [facility] with a laceration of the right side of the abdomen and foreign body of glass. She had fallen at home and as she tried to get up she rolled over a piece of glass which stabbed in her abdomen. He is not complaining of pain in this area. She has a sharp, intermittent pain on the left side. She states it feels somewhat similar to kidney stone she had several years ago. She's had some nausea but no vomiting. She denies fever or chills. She did have one loose stool today, but no vomiting, increased urinary frequency, or dysuria. Review of Systems Review of Systems Constitutional: Denies fever or chills [] Eyes: Denies change in visual acuity, redness, or eye pain [] HENT: Denies nasal congestion or sore throat [] Respiratory: Denies cough or shortness of breath [] Cardiovascular: No additional information not addressed in HPI [] GI: Left sided abdominal pain, nausea. Denies vomiting, bloody stools or diarrhea [] : Denies dysuria or hematuria [] Musculoskeletal: Denies back pain or joint pain [] Integument: Denies rash or skin lesions [] Neurologic: Denies headache, focal weakness or sensory changes [] Endocrine: Denies polyuria or polydipsia [] All other systems were reviewed and found to be within normal limits, except as documented in this note. Current Medications Current Medications Current Medications Medications (Trade) Dose Ordered Sig/Carlton Start Time Stop Time Status Last Admin Dose Admin Ketorolac Tromethamine (Toradol 30mg Vial) 30 mg 1X ONCE 08/06/19 23:30 08/06/19 23:31 UNV Sodium Chloride 1,000 ml @ 1,000 mls/hr 1X ONCE 08/06/19 23:30 08/07/19 00:29 UNV Allergies Allergies Allergies Coded Allergies Type Severity Reaction Last Updated Verified No Known Drug Allergies 01/13/19 No Physical Exam Physical Exam Constitutional: Well developed, obese, well nourished, no acute distress, non- toxic appearance. [] HENT: Normocephalic, atraumatic, bilateral external ears normal, oropharynx moist, no oral exudates, nose normal. [] Eyes: PERRLA, EOMI, conjunctiva normal, no discharge. [] Neck: Normal range of motion, no tenderness, supple, no stridor. [] Cardiovascular:Heart rate regular rhythm, no murmur [] Lungs & Thorax: Bilateral breath sounds clear to auscultation [] Abdomen: Bowel sounds normal, soft, epigastric tenderness, no masses, no pulsatile masses. [] Skin: Warm, dry, no erythema, no rash. [] Back: No tenderness, no CVA tenderness. [] Extremities: No tenderness, no cyanosis, no clubbing, ROM intact, no edema. [] Neurologic: Alert and oriented X 3, normal motor function, normal sensory function, no focal deficits noted. [] Psychologic: Affect normal, judgement normal, mood normal. [] EKG EKG [] Radiology/Procedures Radiology/Procedures [] Impressions: CT abdomen pelvis without contrast dated 08/07/2019. Comparison made to 02/12/2019. CLINICAL INDICATION: Hematuria and flank pain. TECHNIQUE: Contiguous axial imaging the M pelvis performed without the administration of IV or oral contrast. One or more of the following individualized dose reduction techniques were utilized for this examination: 1. Automated exposure control 2. Adjustment of the mA and/or kV according to patient size 3. Use of iterative reconstruction technique. FINDINGS: Limited images of lung bases are clear. Heart size within normal limits. No pleural or pericardial effusion. Solid abdominal viscera not well evaluated in the absence of contrast material. No apparent attenuation abnormality of the liver or spleen. Pancreas, adrenal glands unremarkable. Gallbladder is surgically absent. Kidneys are symmetric in size and attenuation. There is a 2 mm calcific stone at the left kidney midpole. 2 mm calcific stone at the right kidney midpole. No apparent ureteral stone or hydronephrosis. Unopacified GI tract normal in caliber and contour. No focal bowel wall thickening. No inflammatory stranding in the mesentery. The appendix is surgically absent. No free fluid or lymphadenopathy. Small supraumbilical ventral hernia containing only fat. There is some edema within the subcutaneous tissues along the right margin of the hernia defect with a small pocket of fluid that measures 2 cm maximum dimension. Edema extends to the skin surface and there is overlying skin yvette. Images of pelvis show nondistended urinary bladder. Uterus and adnexa are unremarkable. No free fluid or pelvic lymphadenopathy. There is a 2.3 cm left ovarian cyst. Bone windows show no acute findings. Mild lower lumbar spondylosis. IMPRESSION: 1. Bilateral nephrolithiasis, nonobstructive. 2. Small supraumbilical ventral hernia containing only fat, unchanged. There is some subcutaneous edema with possible small pocket of fluid along the right margin of the hernia sacs that extends to the skin surface, nonspecific. This could be related to postoperative defect or subcutaneous injection. Correlate clinically. 3. Status post cholecystectomy Electronically signed by: Suhail Verdugo MD (08/07/2019 1:03 AM) [id number] DICTATED AND SIGNED BY: SUHAIL VERDUGO MD DATE: 08/07/19102 CC: AJITH REYES DO; PCP,NO ~ Course & Med Decision Making Course & Med Decision Making Pertinent Labs and Imaging studies reviewed. (See chart for details) The patient's labs are unremarkable. Her urinalysis did show hematuria. Her CT of the abdomen and pelvis does not show kidney stones in the ureters. She does have nephrolithiasis bilaterally. It is possible that she just passed a stone. The patient 2 mg of morphine in the emergency room. She was just given a prescription for Crosby from another emergency room 3 days ago. The patient was also positive for benzodiazepines and opiates on drug screen. I will not discharge her with any additional pain medication. She will follow up with her primary care physician tomorrow. She is stable for discharge at this time. [] Dragon Disclaimer Dragon Disclaimer This electronic medical record was generated, in whole or in part, using a voice recognition dictation system. Departure Departure: Impression: Primary Impression: Left sided abdominal pain of unknown cause Additional Impression: Hematuria Disposition: HOME, SELF-CARE Condition: STABLE Referrals: PCPBERONICA (PCP) Patient Instructions: Abdominal Pain, [id number], Hematuria-Brief Problem Qualifiers Additional Impression: Hematuria Hematuria type: unspecified type Qualified Codes: R31.9 - Hematuria, unspecified AJITH REYES DO Aug 06, 2019 23:37
[2019-08-06 23:45] LABS: BASO % 1 % (0-3); EOS # 0.5 x10^3/uL (0.0-0.7); EOS % 9 % (0-3); HEMATOCRIT 37.1 % (36.0-47.0); HEMOGLOBIN 12.5 g/dL (12.0-15.5); LYMPH # 1.7 x10^3/uL (1.0-4.8); LYMPH % 33 % (24-48); MEAN CORPUSCULAR HEMOGLOBIN 29 pg (25-35); MEAN CORPUSCULAR HGB CONC 34 g/dL (31-37); MEAN CORPUSCULAR VOLUME 87 fL (79-100); MONO # 0.4 x10^3/uL (0.0-1.1); MONO % 8 % (0-9); NEUT # 2.5 x10^3uL (1.8-7.7); NEUT % 49 % (31-73); PLATELET COUNT 267 x10^3/uL (140-400); RED BLOOD COUNT 4.26 x10^6/uL (3.50-5.40); RED CELL DISTRIBUTION WIDTH 17.5 % (11.5-14.5); WHITE BLOOD COUNT 5.1 x10^3/uL (4.0-11.0)
[2019-08-06] MEDS ORDERED: diphenhydrAMINE 50 MG/ML VIAL IVP ONE (23:45)
[2019-08-06 23:49] LABS: BARBITURATES NEG (NEG); BENZODIAZEPINES POS (NEG); CANNABINOIDS NEG (NEG); COCAINE NEG (NEG); METHADONE NEG (NEG); OPIATES POS (NEG); PHENCYCLIDINE NEG (NEG)
[2019-08-06 23:50] LABS: CALCIUM 8.5 mg/dL (8.5-10.1); CREATININE 0.6 mg/dL (0.6-1.0); GFR 110.7; POTASSIUM 3.5 mmol/L (3.5-5.1)
[2019-08-06 23:51] LABS: AMPHETAMINE/METHAMPHETAMINE NEG (NEG)
[2019-08-06 23:56] LABS: ALBUMIN 3.3 g/dL (3.4-5.0); ALBUMIN/GLOBULIN RATIO 0.8 (1.0-1.7); TOTAL BILIRUBIN 0.2 mg/dL (0.2-1.0); TOTAL PROTEIN 7.3 g/dL (6.4-8.2)
[2019-08-06 23:57] LABS: BACTERIA,URINE FEW /HPF (0-FEW); BILIRUBIN,URINE NEG (NEG); CLARITY,URINE CLEAR; COLOR,URINE STRAW; GLUCOSE,URINE NEG (NEG); NITRITE,URINE NEG (NEG); RBC,URINE 20-40 /HPF (0-2); SQUAMOUS EPITHELIAL CELL,UR FEW /LPF; UROBILINOGEN,URINE 0.2 mg/dL (0.2 mg/dL); WBC,URINE OCC /HPF (0-4)
[2019-08-07] MEDS ORDERED: MORPHINE SULFATE 2 MG/ML DISP.SYRIN. IV ONE (01:00)
--- NOTE | 2019-08-07 01:05 | RAD ---
CT abdomen pelvis without contrast dated 08/07/2019. Comparison made to 02/12/2019. CLINICAL INDICATION: Hematuria and flank pain. TECHNIQUE: Contiguous axial imaging the M pelvis performed without the administration of IV or oral contrast. One or more of the following individualized dose reduction techniques were utilized for this examination: 1. Automated exposure control 2. Adjustment of the mA and/or kV according to patient size 3. Use of iterative reconstruction technique. FINDINGS: Limited images of lung bases are clear. Heart size within normal limits. No pleural or pericardial effusion. Solid abdominal viscera not well evaluated in the absence of contrast material. No apparent attenuation abnormality of the liver or spleen. Pancreas, adrenal glands unremarkable. Gallbladder is surgically absent. Kidneys are symmetric in size and attenuation. There is a 2 mm calcific stone at the left kidney midpole. 2 mm calcific stone at the right kidney midpole. No apparent ureteral stone or hydronephrosis. Unopacified GI tract normal in caliber and contour. No focal bowel wall thickening. No inflammatory stranding in the mesentery. The appendix is surgically absent. No free fluid or lymphadenopathy. Small supraumbilical ventral hernia containing only fat. There is some edema within the subcutaneous tissues along the right margin of the hernia defect with a small pocket of fluid that measures 2 cm maximum dimension. Edema extends to the skin surface and there is overlying skin yvette. Images of pelvis show nondistended urinary bladder. Uterus and adnexa are unremarkable. No free fluid or pelvic lymphadenopathy. There is a 2.3 cm left ovarian cyst. Bone windows show no acute findings. Mild lower lumbar spondylosis. IMPRESSION: 1. Bilateral nephrolithiasis, nonobstructive. 2. Small supraumbilical ventral hernia containing only fat, unchanged. There is some subcutaneous edema with possible small pocket of fluid along the right margin of the hernia sacs that extends to the skin surface, nonspecific. This could be related to postoperative defect or subcutaneous injection. Correlate clinically. 3. Status post cholecystectomy Electronically signed by: Suhail Verdugo MD (08/07/2019 1:03 AM) [id number]
[2019-08-07 01:12] VITALS: BP 101/71
== END 2019-08-07 01:25 | disposition home or self-care (01) ==
LOC: ER 23:04
DX: R10.13 Epigastric pain (principal); R11.0 Nausea; R31.9 Hematuria, unspecified; R19.7 Diarrhea, unspecified; Z87.442 Personal history of urinary calculi; Z90.49 Acquired absence of other specified parts of digestive tract; Z90.89 Acquired absence of other organs; Z90.721 Acquired absence of ovaries, unilateral; F17.210 Nicotine dependence, cigarettes, uncomplicated
CPT/HCPCS: 36415; 74176; 80053; 80307; 81001; 83690; 85025; 96361; 96374; 96375; 99284; J1200; J1885; J2270; J7030

== ENCOUNTER 2019-08-19 20:02 | Emergency (ER) | payer MEDICAID ==
[~2019-08-19] VITALS: Ht 167.6 cm; Wt 98.0 kg
[2019-08-19] MEDS ORDERED: HYDROcodone/APAP 5/325MG 1 TAB TABLET PO ONE (20:45)
[2019-08-19 20:46] LABS: U PREG PATIENT NEGATIVE (NEG)
[2019-08-19 20:50] LABS: BILIRUBIN,URINE NEG (NEG); CLARITY,URINE CLOUDY; COLOR,URINE YELLOW; GLUCOSE,URINE NEG (NEG)
[2019-08-19 20:51] LABS: BACTERIA,URINE MOD /HPF (0-FEW); NITRITE,URINE NEG (NEG); RBC,URINE >40 /HPF (0-2); SQUAMOUS EPITHELIAL CELL,UR MOD /LPF; UROBILINOGEN,URINE 0.2 mg/dL (0.2 mg/dL); YEAST,URINE PRESENT /HPF
[2019-08-19 20:58] LABS: BASO % 1 % (0-3); EOS # 0.2 x10^3/uL (0.0-0.7); EOS % 6 % (0-3); HEMATOCRIT 38.5 % (36.0-47.0); HEMOGLOBIN 13.2 g/dL (12.0-15.5); LYMPH # 1.2 x10^3/uL (1.0-4.8); LYMPH % 28 % (24-48); MEAN CORPUSCULAR HEMOGLOBIN 30 pg (25-35); MEAN CORPUSCULAR HGB CONC 34 g/dL (31-37); MEAN CORPUSCULAR VOLUME 87 fL (79-100); MONO # 0.4 x10^3/uL (0.0-1.1); MONO % 10 % (0-9); NEUT # 2.5 x10^3uL (1.8-7.7); NEUT % 56 % (31-73); PLATELET COUNT 277 x10^3/uL (140-400); RED BLOOD COUNT 4.45 x10^6/uL (3.50-5.40); RED CELL DISTRIBUTION WIDTH 17.5 % (11.5-14.5); WHITE BLOOD COUNT 4.4 x10^3/uL (4.0-11.0)
[2019-08-19 21:03] LABS: CALCIUM 8.8 mg/dL (8.5-10.1); CREATININE 0.7 mg/dL (0.6-1.0); GFR 92.7; POTASSIUM 3.8 mmol/L (3.5-5.1)
[2019-08-19 21:09] LABS: ALBUMIN 3.4 g/dL (3.4-5.0); ALBUMIN/GLOBULIN RATIO 0.8 (1.0-1.7); TOTAL BILIRUBIN 0.3 mg/dL (0.2-1.0); TOTAL PROTEIN 7.6 g/dL (6.4-8.2)
[2019-08-19] MEDS ORDERED: FLUC150T PO (21:16)
[2019-08-19 21:23] VITALS: BP 131/64
--- NOTE | 2019-08-19 21:29 | PHYS DOC ---
Past History Past Medical History: Anxiety, Depression, Kidney Stones Past Surgical History: Appendectomy, Cholecystectomy, Oophorectomy, Other Additional Past Surgical Histo: knee, teratoma resectionovary Smoking: Cigarettes Alcohol Use: None Drug Use: None Adult General Chief Complaint Chief Complaint: ABDOMINAL PAIN HPI HPI Patient is a [39-year-old female presented with abdominal pain is been there for several months usually she can take a hot bath and feels better but tonight it was just too bad she could not take it so she came to the emergency room for evaluation no fever no vomiting just the pain she says she has had 4 surgeries in the last couple years she thinks it is probably from that. Of note she did have a CT scan a couple weeks ago at this facility that showed no acute pat hology Triage Review of Systems Review of Systems Constitutional: Denies fever or chills [] Eyes: Denies change in visual acuity, redness, or eye pain [] HENT: Denies nasal congestion or sore throat [] Musculoskeletal: Denies back pain or joint pain [] Integument: Denies rash or skin lesions [] Neurologic: Denies headache, focal weakness or sensory changes [] Endocrine: Denies polyuria or polydipsia [] All other systems were reviewed and found to be within normal limits, except as documented in this note. Current Medications Current Medications Current Medications Medications (Trade) Dose Ordered Sig/[place] Start Time Stop Time Status Last Admin Dose Admin Acetaminophen/ Hydrocodone Bitart (Lortab 5/325) 2 tab 1X ONCE 08/19/19 20:45 08/19/19 20:46 DC 08/19/19 20:46 2 TAB Allergies Allergies Allergies Coded Allergies Type Severity Reaction Last Updated Verified No Known Drug Allergies 01/13/19 No Physical Exam Physical Exam Constitutional: Well developed, well nourished, no acute distress, non-toxic appearance. [] HENT: Normocephalic, atraumatic, bilateral external ears normal, oropharynx moist, no oral exudates, nose normal. [] Eyes: PERRLA, EOMI, conjunctiva normal, no discharge. [] Neck: Normal range of motion, no tenderness, supple, no stridor. [] Cardiovascular:Heart rate regular rhythm, no murmur [] Lungs & Thorax: Bilateral breath sounds clear to auscultation [] Abdomen: Bowel sounds normal, soft, there is moderate epigastric tenderness there are multiple surgical incisions no appreciable hernia was palpated Skin: Warm, dry, no erythema, no rash. [] Back: No tenderness, no CVA tenderness. [] Extremities: No tenderness, no cyanosis, no clubbing, ROM intact, no edema. [] Neurologic: Alert and oriented X 3, normal motor function, normal sensory function, no focal deficits noted. [] Psychologic: Affect normal, judgement normal, mood normal. [] Current Patient Data Vital Signs Vital Signs Date Time Temp Pulse Resp B/P (MAP) Pulse Ox O2 Delivery O2 Flow Rate FiO2 08/19/19 20:46 18 96 Room Air 08/19/19 20:02 98.5 163/99 (120) Lab Results Laboratory Tests Test 08/19/19 20:10 08/19/19 20:40 Urine Collection Type Unknown Urine Color Yellow Urine Clarity Cloudy Urine pH 6.0 Urine Specific [place] 1.025 Urine Protein Neg (NEG-TRACE) Urine Glucose (UA) Neg mg/dL (NEG) Urine Ketones (Stick) Neg mg/dL (NEG) Urine Blood Large (NEG) Urine Nitrite Neg (NEG) Urine Bilirubin Neg (NEG) Urine Urobilinogen Dipstick 0.2 mg/dL (0.2 mg/dL) Urine Leukocyte Esterase Trace (NEG) Urine RBC >40 /HPF (0-2) Urine WBC 5-10 /HPF (0-4) Urine Squamous Epithelial Cells Mod /LPF Urine Bacteria Mod /HPF (0-FEW) Urine Mucus Slight /LPF Urine Yeast Present /HPF Urine Test Negative (NEG) White Blood Count 4.4 x10^3/uL (4.0-11.0) Red Blood Count 4.45 x10^6/uL (3.50-5.40) Hemoglobin 13.2 g/dL (12.0-15.5) Hematocrit 38.5 % (36.0-47.0) Mean Corpuscular Volume 87 fL (79-100) Mean Corpuscular Hemoglobin 30 pg (25-35) Mean Corpuscular Hemoglobin Concent 34 g/dL (31-37) Red Cell Distribution Width 17.5 % (11.5-14.5) H Platelet Count 277 x10^3/uL (140-400) Neutrophils (%) (Auto) 56 % (31-73) Lymphocytes (%) (Auto) 28 % (24-48) Monocytes (%) (Auto) 10 % (0-9) H Eosinophils (%) (Auto) 6 % (0-3) H Basophils (%) (Auto) 1 % (0-3) Neutrophils # (Auto) 2.5 x10^3uL (1.8-7.7) Lymphocytes # (Auto) 1.2 x10^3/uL (1.0-4.8) Monocytes # (Auto) 0.4 x10^3/uL (0.0-1.1) Eosinophils # (Auto) 0.2 x10^3/uL (0.0-0.7) Basophils # (Auto) 0.0 x10^3/uL (0.0-0.2) Sodium Level 141 mmol/L (136-145) Potassium Level 3.8 mmol/L (3.5-5.1) Chloride Level 105 mmol/L (98-107) Carbon Dioxide Level 26 mmol/L (21-32) Anion Gap 10 (6-14) Blood Urea Nitrogen 13 mg/dL (7-20) Creatinine 0.7 mg/dL (0.6-1.0) Estimated GFR (Cockcroft-Gault) 92.7 BUN/Creatinine Ratio 19 (6-20) Glucose Level 112 mg/dL (70-99) H Calcium Level 8.8 mg/dL (8.5-10.1) Total Bilirubin 0.3 mg/dL (0.2-1.0) Aspartate Amino Transferase (AST) 36 U/L (15-37) Alanine Aminotransferase (ALT) 68 U/L (14-59) H Alkaline Phosphatase 184 U/L (46-116) H Total Protein 7.6 g/dL (6.4-8.2) Albumin 3.4 g/dL (3.4-5.0) Albumin/Globulin Ratio 0.8 (1.0-1.7) L Lipase 30 U/L (73-393) L EKG EKG [] Radiology/Procedures Radiology/Procedures [] Course & Med Decision Making Course & Med Decision Making Pertinent Labs and Imaging studies reviewed. (See chart for details) [] Noted possible yeast on UA prescription was provided for this. Patient has blood in her urine she is aware of that she does have a prior history of kidney stone she says she is not on her period that she knows of. Likely chronic abdominal pain is been present for months and months and months she says it has not changed recently at home think we need to reimage her labs are stable I did give a dose of [place] in the emergency room and advised her to follow-up with her surgeon and pain management she plans to do so. Dragon Disclaimer Dragon Disclaimer This electronic medical record was generated, in whole or in part, using a voice recognition dictation system. Departure Departure: Impression: Primary Impression: Chronic abdominal pain Disposition: HOME, SELF-CARE Condition: STABLE Patient Instructions: Abdominal Pain Scripts Fluconazole (DIFLUCAN) 150 Mg Tablet 1 TAB PO ONCE for yeast infection, #1 TAB 1 Refill Prov: MARIA DE JESUS CLARKE MD 08/19/19 MARIA DE JESUS CLARKE MD Aug 19, 2019 21:29
== END 2019-08-19 21:23 | disposition home or self-care (01) ==
LOC: ER 20:02
DX: G89.29 Other chronic pain (principal); R10.13 Epigastric pain; F17.210 Nicotine dependence, cigarettes, uncomplicated; Z87.442 Personal history of urinary calculi; Z90.49 Acquired absence of other specified parts of digestive tract; Z90.89 Acquired absence of other organs; Z90.721 Acquired absence of ovaries, unilateral
CPT/HCPCS: 36415; 80053; 81001; 81025; 83690; 85025; 87086; 99283

== ENCOUNTER 2021-11-09 23:24 | Emergency (ER) | payer MEDICAID ==
[~2021-11-09] VITALS: Ht 165.1 cm; Wt 113.8 kg
[~2021-11-09 23:24] MED LIST changes: -CYCL-331 PO; +CYCL10TA19 PO; +DICY20TA PO; -DICY20TA3 PO; +FLUC150T PO
--- NOTE | 2021-11-09 23:44 | PHYS DOC ---
Past History Past Medical History: Anxiety, Depression, Kidney Stones Past Surgical History: Appendectomy, Cholecystectomy, Oophorectomy, Other Additional Past Surgical Histo: knee, teratoma resectionovary Smoking: Cigarettes Alcohol Use: None Drug Use: None Adult General Chief Complaint Chief Complaint: FLANK PAIN HPI HPI Patient is 41-year-old female who presents with a chief complaint of right flank pain that started earlier in the day, 8 out of 10, sharp in nature with some radiation down to her groin. States she has had this several times in the past that she has had 6-10 kidney stones in her life once requiring surgery. States that this does feel similar. States that she has some nausea as well but no vomiting. Denies any recent traumas or travels, illness, fevers, chest pain or shortness of breath, dysuria, hematuria. Review of Systems Review of Systems Review of systems otherwise unremarkable except noted in HPI Allergies Allergies Allergies Coded Allergies Type Severity Reaction Last Updated Verified No Known Drug Allergies 01/13/19 No Physical Exam Physical Exam Constitutional: Well developed, well nourished, no acute distress, non-toxic appearance. [] HENT: Normocephalic, atraumatic, Eyes: conjunctiva normal, no discharge. [] Neck: Normal range of motion, no tenderness, supple, no stridor. [] Cardiovascular:Heart rate regular rhythm, no murmur [] Lungs & Thorax: No respiratory distress Abdomen: soft, no tenderness, no masses, no pulsatile masses. [] Skin: Warm, dry, no erythema, no rash. [] Back: Right-sided CVA tenderness. [] Extremities: No tenderness, no cyanosis, no clubbing, ROM intact, no edema. [] Neurologic: Alert and oriented X 3, normal motor function, normal sensory function, able to sit, stand and walk without issue, no focal deficits noted. [] Psychologic: Affect normal, judgement normal, mood normal. [] EKG EKG [] Radiology/Procedures Radiology/Procedures [] Heart Score C/O Chest Pain: No Risk Factors: Risk Factors: DM, Current or recent (<one month) smoker, HTN, HLP, family history of CAD, obesity. Risk Scores: Risk Factors: DM, Current or recent (<one month) smoker, HTN, HLP, family history of CAD, obesity. Course & Med Decision Making Course & Med Decision Making Patient is 41-year-old female presents with right-sided flank pain and history of multiple kidney stones Vital signs nonconcerning. Physical exam noted above. Given pain and nausea medicine. Imaging with bilateral 2 mL renal pelvic stones with no hydronephrosis or obstruction. Urine negative. Laboratory analysis not concerning. Discussed all findings with patient. Discussed symptom management at home. Ad vised follow-up with primary care physician Gave return precautions to the ED. Patient grateful, verbalized understanding and agreed with plan of discharge. Dragon Disclaimer Dragon Disclaimer This electronic medical record was generated, in whole or in part, using a voice recognition dictation system. Departure Departure: Impression: Primary Impression: Flank pain Additional Impression: Ureterolithiasis Condition: STABLE Referrals: PCPBERONICA (PCP) MALLORY ARNETT Patient Instructions: Diet for Kidney Stones, Kidney Stones, Ureteral Colic Additional Instructions: Thank you for coming into the emergency department tonight and allowing us to take care of you. Please read the attached information carefully to go over things that we discussed. Please take your prescription nausea medicine every 6 hours as needed. Please take your prescription pain medicine every 6 hours as needed. Please take ibuprofen, 600 mg every 6 hours. You can add Benadryl at 50 mg every 6 hours as well. Please stay well-hydrated. As discussed you have to 2 mm stones. These are relatively small and should pass quickly. Please follow-up with your primary care physician as soon as you can update on your ED visit and set up a follow-up. Please come back with new or concerning symptoms as we discussed. Problem Qualifiers JILLIAN MACEDO MD November 09, 2021 23:44
[2021-11-10] MEDS ORDERED: ONDANSETRON ODT 4 MG TAB.RAPDIS PO ONE
[2021-11-10] MEDS ORDERED: MORPHINE SULFATE 10 MG/ML SYRINGE. SQ ONE
--- NOTE | 2021-11-10 00:19 | RAD ---
Abdominal and Pelvis CT, Without Contrast: History: Reason: right flank pain, H/O stones / Spl. Instructions: / History: Comparison: August 07, 2019. Procedure: Axial images are obtained of the abdomen and pelvis, without IV or oral contrast. Oral Contrast: No Findings: Evaluation of solid organs is limited without contrast. There has been prior cholecystectomy. The appendix is not seen and likely removed. The small cyst in the left ovary was seen previously. There is a fat-containing periumbilical hernia. Liver: Normal. Spleen: Normal. Pancreas: Normal. Adrenal Glands: Normal. Kidneys: Small nonobstructive stones bilaterally. There is no free air or free fluid. There is no lymphadenopathy. The urinary bladder is collapsed and not well evaluated. There is no pericolonic inflammation identified. Impression: Urolithiasis. No evidence of obstructive uropathy. No acute findings. End impression PQRS Compliance Statement: One or more of the following individualized dose reduction techniques were utilized for this examinat ion: 1. Automated exposure control 2. Adjustment of the mA and/or kV according to patient size 3. Use of iterative reconstruction technique Electronically signed by: Emanuel Chamorro III, MD (11/10/2021 12:16 AM) [facility]
[2021-11-10 00:39] LABS: BASO % 0 % (0-3); EOS # 0.1 x10^3/uL (0.0-0.7); EOS % 2 % (0-3); HEMATOCRIT 40.5 % (36.0-47.0); HEMOGLOBIN 14.2 g/dL (12.0-15.5); LYMPH # 2.8 x10^3/uL (1.0-4.8); LYMPH % 41 % (24-48); MEAN CORPUSCULAR HEMOGLOBIN 32 pg (25-35); MEAN CORPUSCULAR HGB CONC 35 g/dL (31-37); MEAN CORPUSCULAR VOLUME 92 fL (79-100); MONO # 0.5 x10^3/uL (0.0-1.1); MONO % 8 % (0-9); NEUT # 3.2 x10^3uL (1.8-7.7); NEUT % 48 % (31-73); PLATELET COUNT 234 x10^3/uL (140-400); RED BLOOD COUNT 4.42 x10^6/uL (3.50-5.40); RED CELL DISTRIBUTION WIDTH 13.5 % (11.5-14.5); WHITE BLOOD COUNT 6.7 x10^3/uL (4.0-11.0)
[2021-11-10 00:45] LABS: CLARITY,URINE CLEAR; COLOR,URINE YELLOW; GLUCOSE,URINE NEG (NEG); NITRITE,URINE NEG (NEG); UROBILINOGEN,URINE 0.2 mg/dL (0.2 mg/dL)
[2021-11-10 00:45] LABS: CALCIUM 9.4 mg/dL (8.5-10.1); CREATININE 0.7 mg/dL (0.6-1.0); GFR 91.8; POTASSIUM 3.6 mmol/L (3.5-5.1)
[2021-11-10 00:46] LABS: BACTERIA,URINE 0 /HPF (0-FEW); RBC,URINE 0 /HPF (0-2); SQUAMOUS EPITHELIAL CELL,UR FEW /LPF
[2021-11-10 01:00] VITALS: BP 128/94
[2021-11-10] MEDS ORDERED: MORPHINE SULFATE 10 MG/ML SYRINGE. IM ONE (01:00)
[2021-11-10] MEDS ORDERED: diphenhydrAMINE 50 MG/ML VIAL IVP ONE (01:00)
[2021-11-10] MEDS ORDERED: KETOROLAC 15 MG/ML VIAL. IVP ONE (01:00)
[2021-11-10] MEDS ORDERED: ACETAMINOPHEN/CODEINE 300/30MG 4TABLET STARTPACK. PO ONE (01:30)
[2021-11-10] MEDS ORDERED: oxyCODONE/APAP 5/325 1 TAB TABLET PO ONE (01:30)
[2021-11-10] MEDS ORDERED: ONDANSETRON 4MG ODT 4TABLET STARTPACK. PO ONE (01:30)
== END 2021-11-10 01:20 | disposition home or self-care (01) ==
LOC: ER 23:24
DX: N20.1 Calculus of ureter (principal); F17.210 Nicotine dependence, cigarettes, uncomplicated; Z87.442 Personal history of urinary calculi; Z90.89 Acquired absence of other organs; Z90.49 Acquired absence of other specified parts of digestive tract; Z90.722 Acquired absence of ovaries, bilateral
CPT/HCPCS: 36415; 74176; 80048; 81001; 81025; 83690; 85025; 96372; 96374; 96375; 99284; J1200; J1885; J2270; Q0162